=== PATIENT | male | born 1950 | race Caucasian/White ===

== ENCOUNTER 2017-01-16 13:01 | Emergency (ER) | payer OTHER ==
--- NOTE | 2017-01-16 13:50 | ED Physician Documentation ---
PD HPI DYSPNEA - Stated complaint Stated Complaint: DIFF BREATHING/COUGH - Chief complaint Chief Complaint: Resp - History obtained from History obtained from: Patient - History of Present Illness Timing - onset: How many days ago (10) Timing - onset during: Exertion Timing - duration: Days (10) Timing - details: Gradual onset Pain level max: 0 Pain level now: 0 Inciting event(s): URI Improved by: Inhaler/neb (states using albuterol 20x per day) Worsened by: Exertion, Coughing Associated symptoms: Cough, Wheezing. No: Fever Similar symptoms before: Diagnosis (COPD) Recently seen: Clinic (currently on azithromycin) - Additional information Additional information: sick with URI as well. Review of Systems Nose: reports: Rhinorrhea / runny nose, Congestion Throat: denies: Sore throat Cardiac: denies: Chest pain / pressure Respiratory: reports: Cough, Wheezing GI: denies: Abdominal Pain, Nausea, Vomiting, Diarrhea Skin: denies: Rash Musculoskeletal: denies: Neck pain, Back pain Neurologic: denies: Focal weakness, Numbness, Headache PD PAST MEDICAL HISTORY - Past Medical History Past Medical History: Yes Cardiovascular: Coronary artery disease Respiratory: COPD Neuro: None Endocrine/Autoimmune: Type 2 diabetes GI: GERD - Past Surgical History Past Surgical History: Yes Cardiovascular: Fempop bypass - Present Medications Home Medications: Ambulatory Orders Medication Instructions Recorded Confirmed Aspirin [Valorie Chewable Aspirin] 81 mg PO DAILY 01/08/16 01/08/16 Atenolol 25 mg PO DAILY 01/08/16 01/08/16 Atorvastatin Calcium [Lipitor] 40 mg PO DAILY 01/08/16 01/08/16 Cephalexin [Keflex] 500 mg PO QID #28 capsule 01/08/16 Dexamethasone [Decadron] 4 mg PO DAILY #5 tablet 01/08/16 Diltiazem HCl [Cardizem] 180 mg PO DAILY 01/08/16 01/08/16 Gabapentin 300 mg PO TID 01/08/16 01/08/16 Hydrocodone/Acetaminophen [[place] 1 each PO Q6H PRN #20 tablet 01/08/16 5-325 Tablet] Ipratropium [place] [Atrovent Hfa] 2 puffs IH QID #1 hfa.aer.ad 01/08/16 Nortriptyline [Pamelor] 50 mg PO DAILY 01/08/16 01/08/16 Omeprazole 01/08/16 metFORMIN [Glucophage] 1,000 mg PO BID 01/08/16 01/08/16 Albuterol Sulf [Ventolin Hfa 2 puffs INH Q4HR PRN #1 inhaler 01/16/17 Inhaler] Prednisone 40 mg PO DAILY #10 tablet 01/16/17 - Allergies Allergies/Adverse Reactions: Allergies Allergy/AdvReac Type Severity Reaction Status Date / Time lisinopril Allergy Respiratory Verified 01/08/16 01:27 - Social History Does the pt smoke?: No Smoking Status: Never smoker Does the pt drink ETOH?: No - Immunizations Immunizations are current?: Yes PD ED PE NORMAL - Vitals Vital signs reviewed: Yes - General General: Alert and oriented X 3, No acute distress - HEENT HEENT: Moist mucous membranes - Neck Neck: Supple, no meningeal sign - Cardiac Cardiac: RRR - Respiratory Respiratory: No respiratory distress, Other (wheezing B) - Derm Derm: Warm and dry - Neuro Neuro: Alert and oriented X 3 - Psych Psych: Normal mood, Normal affect Results - Vitals Vitals: Vital Signs - 24 hr 01/16/17 01/16/17 01/16/17 13:04 13:40 14:30 Temperature 36.7 C Heart Rate 94 87 86 Respiratory 25 H 22 20 Rate Blood Pressure 181/94 H 172/85 H O2 Saturation 94 94 01/16/17 15:06 Temperature Heart Rate 84 Respiratory 20 Rate Blood Pressure 156/75 H O2 Saturation 94 Oxygen O2 Source Room air - EKG (time done) 1335 Rate: Rate (enter#) (90) Rhythm: NSR [place]: Normal Intervals: Normal [place] QRS: Normal Ischemia: Normal ST segments - Rads (name of study) cxr Radiology: Prelim report reviewed, EMP read contemporaneously, See rad report ( Mild hyperinflation with biapical pleural parenchymal scarring without acute pulmonary consolidation) PD MEDICAL DECISION MAKING - ED course Complexity details: reviewed results, re-evaluated patient, considered differential, d/w patient ED course: Patient is a 66-year-old male who presents to the emergency department with apparent viral URI with COPD flare. Feels better after nebulizer treatment and steroids here. No evidence of pneumonia. No fevers. No hypoxia. No respiratory distress. No acute findings on x-ray. We will continue supportive care, refill his inhaler and prescribed prednisone for home. Patient and family counseled regarding signs and symptoms for which I believe and urgent re- evaluation would be necessary. Patient with good understanding of and agreement to plan and is comfortable going home at this time This document was made in part using voice recognition software. While efforts are made to proofread this document, sound alike and grammatical errors may occur. Departure - Departure Disposition: Home, Self Care Clinical Impression: Acute exacerbation of COPD with asthma Condition: Good Instructions: ED COPD Flare Follow-Up: Provider,Other [Primary Care Provider] - Prescriptions: Albuterol Sulf [Ventolin Hfa Inhaler] 2 puffs INH Q4HR PRN #1 inhaler PRN Reason: Wheezing Prednisone 40 mg PO DAILY #10 tablet Comments: Return if you worsen. Use the spacer with your inhaler. Your blood pressure was elevated today on check in to the emergency department. This does not mean that you have hypertension, it is a common phenomenon to check into the emergency department and have elevated blood pressure. I recommend that you see your primary care physician within the week to have it rechecked when you're feeling better. Discharge Date/Time: 01/16/17 15:16
[2017-01-16] MEDS ORDERED: IPRATROPIUM/ALBUTEROL 3 ML NEB INH STA (14:00)
[2017-01-16] MEDS ORDERED: predniSONE 20 MG TABLET PO STA (14:04)
[2017-01-16] MEDS ORDERED: predniSONE 20 MG TABLET ONE (14:11)
--- NOTE | 2017-01-16 14:50 | XRAY Preliminary Report ---
Exam: XR Chest 2 View PA/LAT IMPRESSION: 1. Mild hyperinflation with biapical pleural parenchymal scarring without acute pulmonary consolidati on. [facility] SITE ID: [id number]
--- NOTE | 2017-01-16 14:52 | XRAY Report ---
EXAM: CHEST RADIOGRAPHY EXAM DATE: 01/16/2017 02:30 PM. CLINICAL HISTORY: Cough, wheezing. COMPARISON: Chest x-ray 01/08/2016. TECHNIQUE: 2 views. FINDINGS: Lungs/Pleura: Mild hyperinflation without pleural effusion or pneumothorax. Mild apical pleural-paren chymal scarring. Mediastinum: Heart and mediastinal contours are unremarkable. Other: Status post median sternotomy. IMPRESSION: 1. Mild hyperinflation with biapical pleural parenchymal scarring without acute pulmonary consolidati on. [facility] Referring Provider Line: [phone] SITE ID: [id number]
[2017-01-16 15:08] VITALS: BP 156/75
== END 2017-01-16 15:16 | disposition home or self-care (01) ==
LOC: ED 13:01
DX: J44.1 Chronic obstructive pulmonary disease with (acute) exacerbation (principal); R03.0 Elevated blood-pressure reading, without diagnosis of hypertension; I25.10 Atherosclerotic heart disease of native coronary artery without angina pectoris; E11.9 Type 2 diabetes mellitus without complications; Z79.84 Long term (current) use of oral hypoglycemic drugs; K21.9 Gastro-esophageal reflux disease without esophagitis; Z79.82 Long term (current) use of aspirin
CPT/HCPCS: 71020; 93005; 93010; 94640; 99283; 99284; J7512; J7620

== ENCOUNTER 2017-01-24 19:57 | Outpatient (CLI) | payer MEDICARE, OTHER | END 2017-01-24 19:58 | disposition critical access hospital (66) | LOC: EMS 19:57 | PROVIDERS: ATTEND Surgery | DX: R07.9 Chest pain, unspecified (principal); R06.02 Shortness of breath | CPT/HCPCS: A0425; A0427 ==

== ENCOUNTER 2017-01-24 20:10 | Inpatient (IN) | payer MEDICARE, OTHER ==
[2017-01-24] MEDS ORDERED: MORPHINE 2 MG/ML SYRINGE IVP STA (20:39)
--- NOTE | 2017-01-24 20:42 | ED Physician Documentation ---
PD HPI CHEST PAIN - Stated complaint Stated Complaint: CP - Chief complaint Chief Complaint: Resp - History obtained from History obtained from: Patient, EMS - History of Present Illness Timing - onset: How many hours ago (1) Timing - onset during: Rest Timing - duration: Hours (1) Timing - details: Abrupt onset Pain level max: 8 Pain level now: 2 Quality: Pressure, Tightness, Aching Location: Substernal, Right chest Radiation: No: Jaw, Neck, Back, Abdominal, Left upper extremity, Right upper extremity Improved by: Oxygen, Nothing Worsened by: No: Exertion, Inspiration, Eating, Movement, Palpation, Position Associated symptoms: Shortness of air, Diaphoresis, Feeling faint / dizzy, Cough (for 1 week) Similar symptoms before: Diagnosis (COPD flare) Recently seen: Emergency Dept (last week for COPD flare.) - Additional information Additional information: Patient states that he drove through [employer] and as he was pulling away from the drive-through developed sudden onset right-sided chest pain. Oxygen saturation of 81% with EMS. Improved with supplemental oxygen. Patient took 3 of his own nitroglycerin which did not help. He was also given 125 of Solu- Medrol as well as a DuoNeb with EMS tonight prior to arrival. Review of Systems Ten Systems: 10 systems reviewed and negative (Subjective) Constitutional: reports: Fever, Chills Nose: reports: Rhinorrhea / runny nose, Congestion Throat: denies: Sore throat Cardiac: reports: Chest pain / pressure (Right sided, low) Respiratory: reports: Dyspnea, Cough, Wheezing. denies: Hemoptysis GI: denies: Abdominal Pain, Nausea, Vomiting, Diarrhea Skin: denies: Rash PD PAST MEDICAL HISTORY - Past Medical History Past Medical History: Yes Cardiovascular: Coronary artery disease Respiratory: COPD Neuro: None Endocrine/Autoimmune: Type 2 diabetes GI: GERD : None HEENT: None Psych: None Musculoskeletal: None Derm: None - Past Surgical History Past Surgical History: Yes Cardiovascular: Fempop bypass - Present Medications Home Medications: Ambulatory Orders Medication Instructions Recorded Confirmed Aspirin [Valorie Chewable Aspirin] 81 mg PO DAILY 01/08/16 01/24/17 Atenolol 25 mg PO DAILY 01/08/16 01/24/17 Atorvastatin Calcium [Lipitor] 40 mg PO DAILY 01/08/16 01/24/17 Diltiazem HCl [Cardizem] 180 mg PO DAILY 01/08/16 01/24/17 Omeprazole 20 mg PO DAILY 01/08/16 01/24/17 metFORMIN [Glucophage] 1,000 mg PO BID 01/08/16 01/24/17 Albuterol Sulf [Ventolin Hfa 2 puffs INH Q4HR PRN #1 inhaler 01/16/17 01/24/17 Inhaler] Fluticasone/Salmeterol [Advair 250 puffs INH DAILY 01/24/17 01/24/17 250-50 Diskus] Glipizide [Glucotrol Xl] 5 mg PO DAILY 01/24/17 01/24/17 Salmeterol Xinafoate [Serevent 50 mcg INH DAILY 01/24/17 01/24/17 Diskus] - Allergies Allergies/Adverse Reactions: Allergies Allergy/AdvReac Type Severity Reaction Status Date / Time lisinopril Allergy Respiratory Verified 01/08/16 01:27 - Social History Does the pt smoke?: No Smoking Status: Former smoker Does the pt drink ETOH?: No Does the pt have substance abuse?: No - Immunizations Immunizations are current?: Yes Results - Vitals Vitals: Vital Signs - 24 hr 01/24/17 01/24/17 01/24/17 20:11 21:19 21:20 Temperature 37.0 C Heart Rate 108 H 103 H 106 H Respiratory 32 H 28 H 20 Rate Blood Pressure 137/71 H 137/71 H O2 Saturation 91 L 97 Oxygen O2 Source Nasal cannula Oxygen Flow Rate 5 - EKG (time done) 2020 Rate: Rate (enter#) (106) Rhythm: Sinus tachycardia [place]: Normal, Posterior hemiblock (LPFB) Intervals: Normal [place] QRS: Normal Ischemia: Normal ST segments - Labs Labs: Laboratory Tests 01/24/17 01/24/17 01/24/17 20:39 21:00 21:00 WBC 26.0 H RBC 4.94 Hgb 14.6 Hct 44.2 MCV 89.6 MCH 29.6 MCHC 33.0 RDW 13.8 Plt Count 312 MPV 8.9 Neut # Not Reportable Lymph # Not Reportable Ada # Not Reportable Eos # Not Reportable Baso # Not Reportable Absolute Nucleated RBC Not Reportable Total Counted 100 Band Neuts % (Manual) 2 Neutrophils # (Manual) 20.8 H Lymphocytes # (Manual) 3.1 Monocytes # (Manual) 1.8 H Basophils # (Manual) 0.3 H Nucleated RBCs Not Reportable Differential Comment MANUAL DIFFERENTIAL Platelet Estimate NORMAL (130-450,000) RBC Morph Micro Appear NORMAL APPEARANCE Sodium 134 L Potassium 3.6 Chloride 96 L Carbon Dioxide 26 Anion Gap 12.0 BUN 24 H Creatinine 1.1 Estimated GFR (MDRD) 67 L Glucose 183 H Lactic Acid Calcium 8.8 Total Bilirubin 1.2 H AST 15 ALT 27 Alkaline Phosphatase 59 Troponin I < 0.04 Total Protein 7.6 Albumin 3.3 Globulin 4.3 H Albumin/Globulin Ratio 0.8 L Lipase 12 L 01/24/17 22:05 WBC RBC Hgb Hct MCV MCH MCHC RDW Plt Count MPV Neut # Lymph # Ada # Eos # Baso # Absolute Nucleated RBC Total Counted Band Neuts % (Manual) Neutrophils # (Manual) Lymphocytes # (Manual) Monocytes # (Manual) Basophils # (Manual) Nucleated RBCs Differential Comment Platelet Estimate RBC Morph Micro Appear Sodium Potassium Chloride Carbon Dioxide Anion Gap BUN Creatinine Estimated GFR (MDRD) Glucose Lactic Acid 1.1 Calcium Total Bilirubin AST ALT Alkaline Phosphatase Troponin I Total Protein Albumin Globulin Albumin/Globulin Ratio Lipase - Rads (name of study) CTPA Radiology: Prelim report reviewed, EMP read contemporaneously, See rad report ( Blfw-sy-rrpbpjab patchy consolidations seen in the bases of the bilateral lower lobes including multiple nodular opacities. These are concerning for multifocal pneumonia. Follow-up is recommended to ensure resolution. No evidence for pulmonary emboli . Otherwise, as above. ) cxr Radiology: Prelim report reviewed, EMP read contemporaneously, See rad report ( No acute cardiopulmonary abnormality. ) PD MEDICAL DECISION MAKING - ED course Complexity details: reviewed old records, reviewed results, re-evaluated patient , considered differential, d/w patient, d/w family, d/w product/industry consultant ED course: Patient is a 66-year-old male who presents to the emergency department with hypoxia, chest pain intermittent fevers for the past week. He appears to have a COPD flare, initial concern for possible PE given his sudden onset of chest pain with hypoxia. CT pulmonary angiogram is negative for this, however does appear to have multifocal pneumonia. Given Rocephin and azithromycin and will admit the patient for further care. Still requiring supplemental oxygen here. Does not use oxygen at home. White blood cell count of 26,000.Discussed the case with Dr. Shore, hospitalist who accepts This document was made in part using voice recognition software. While efforts are made to proofread this document, sound alike and grammatical errors may occur. Departure - Departure Disposition: 66 [facility] DC/Xfer Clinical Impression: Multifocal pneumonia, Hypoxia COPD (chronic obstructive pulmonary disease) Qualifiers: COPD type: unspecified COPD Qualified Code(s): J44.9 - Chronic obstructive pulmonary disease, unspecified Condition: Stable Discharge Date/Time: 01/24/17 22:58
[2017-01-24] MEDS ORDERED: MORPHINE 2 MG/ML SYRINGE ONE (20:43)
[2017-01-24 20:47] LABS: BASOPHILS % (AUTO) 0.8 %; EOSINOPHILS % (AUTO) 1.3 %; HCT - HEMATOCRIT 44.2 % (42.0-52.0); HGB - HEMOGLOBIN 14.6 g/dL (14.0-18.0); LYMPHOCYTES % (AUTO) 13.3 %; MEAN CORPUSCULAR HEMOGLOBIN 29.6 pg (27.0-31.0); MEAN CORPUSCULAR VOLUME 89.6 fL (80.0-94.0); MEAN PLATELET VOLUME 8.9 fL (7.4-11.4); NEUTROPHILS % (AUTO) 77.6 %; RED BLOOD COUNT 4.94 10^6/uL (4.70-6.10); RED CELL DISTRIBUTION WIDTH 13.8 % (12.0-15.0)
[2017-01-24] MEDS ORDERED: IPRATROPIUM/ALBUTEROL 3 ML NEB INH STA (21:06)
--- NOTE | 2017-01-24 21:06 | XRAY Preliminary Report ---
Exam: XR Chest 1 View IMPRESSION: No acute cardiopulmonary abnormality. [facility] SITE ID: [id number]
--- NOTE | 2017-01-24 21:08 | XRAY Report ---
EXAM: CHEST RADIOGRAPHY EXAM DATE: 01/24/2017 08:46 PM. CLINICAL HISTORY: R side chest pain. COMPARISON: 01/16/2017. TECHNIQUE: 1 view. FINDINGS: Lungs/Pleura: No focal opacities evident. No pleural effusion. No pneumothorax. Mediastinum: The heart is normal in size. Previous sternotomy and mediastinal surgery noted. Trachea is midline. Other: None. IMPRESSION: No acute cardiopulmonary abnormality. [facility] Referring Provider Line: [phone] SITE ID: [id number]
[2017-01-24 21:18] LABS: BAND NEUTROPHILS % (MANUAL) 2 %; BASOPHILS % (MANUAL) 1 %; LYMPHOCYTES % (MANUAL) 12 %; NEUTROPHILS % (MANUAL) 78 %; NP AUTO DIFFERENTIAL? YES; NP MAN DIFFERENTIAL? NO; PLATELET ESTIMATE, MANUAL NORMAL (130-450,000) (NORMAL); TOTAL CELLS COUNTED 100
[2017-01-24] MEDS ORDERED: IPRATROPIUM/ALBUTEROL 3 ML NEB INH ONE (21:18)
[2017-01-24 21:21] LABS: ALBUMIN/GLOBULIN RATIO 0.8 (1.0-2.2); BILIRUBIN,TOTAL 1.2 mg/dL (0.2-1.0); CALCIUM 8.8 mg/dL (8.5-10.3); CREATININE 1.1 mg/dL (0.6-1.2); POTASSIUM 3.6 mmol/L (3.5-5.0); TOTAL PROTEIN 7.6 g/dL (6.7-8.2)
[2017-01-24] MEDS ORDERED: IOPAMIDOL-300 100 ML VIAL IVP ONE (21:24)
--- NOTE | 2017-01-24 21:55 | CT Preliminary Report ---
Exam: CT Chest Angio (PE) IMPRESSION: 1. Ruiz-ti-grtyvufs patchy consolidations seen in the bases of the bilateral lower lobes including mu ltiple nodular opacities. These are concerning for multifocal pneumonia. Follow-up is recommended to ensure resolution. 2. No evidence for pulmonary emboli 3. Otherwise, as above. [facility] SITE ID: [id number]
[2017-01-24] MEDS ORDERED: AZITHROMYCIN INJ 500 MG in SODIUM CHLORIDE 0.9% 250 ML IV STA ×2 (21:56→22:17)
[2017-01-24] MEDS ORDERED: cefTRIAXone 1 GM in SODIUM CHLORIDE 0.9% MINIBAG 100 ML IV STA ×2 (21:56→22:17)
[2017-01-24] MEDS ORDERED: SODIUM CHLORIDE 0.9% 1,000 ML IV ONE ×4 (21:56→23:57)
--- NOTE | 2017-01-24 21:57 | CT Report ---
EXAM: CT ANGIOGRAM CHEST EXAM DATE: 01/24/2017 09:34 PM. CLINICAL HISTORY: Right sided chest pain, dyspnea. COMPARISON: Chest 01/24/2017. TECHNIQUE: Routine helical imaging was performed through the chest in the pulmonary arterial phase. I V Contrast: 100 mL Isovue 300. Reconstructions: Coronal 3-D MIP reconstructions.Sagittal and coronal. In accordance with CT protocol optimization, one or more of the following dose reduction techniques w ere utilized for this exam: automated exposure control, adjustment of mA and/or KV based on patient s ize, or use of iterative reconstructive technique. FINDINGS: Pulmonary Arteries: Diagnostic quality: Adequate through the segmental arteries. No evidence for acute or chronic pulmona ry emboli. Lungs/Pleura: Mild biapical scarring. Minimal biapical paraseptal emphysema. Yzyp-wa-uojzlbfp patchy consolidations seen in the bases of the bilateral lower lobes including multi ple nodular opacities Mediastinum: Subcarinal lymph node is prominent measuring 6 mm prominent mediastinal lymph nodes. No mediastinal or hilar lymphadenopathy. Prominent left hilar lymph node measuring 8 mm . Mediastinal po stsurgical change. Coronary artery Calcification. Normal Heart Size. Thoracic Aorta: No thoracic aortic aneurysm or dissection Upper Abdomen: No acute findings Other: No acute bone findings. IMPRESSION: 1. Obza-an-nyggtihn patchy consolidations seen in the bases of the bilateral lower lobes including mu ltiple nodular opacities. These are concerning for multifocal pneumonia. Follow-up is recommended to ensure resolution. 2. No evidence for pulmonary emboli 3. Otherwise, as above. [facility] Referring Provider Line: [phone] SITE ID: [id number]
[2017-01-24] MEDS ORDERED: cefTRIAXone 1 GM VIAL ONE (21:59)
[2017-01-24] MEDS ORDERED: SODIUM CHLORIDE FLUSH 0.9% 10 ML SYRINGE IVP PRN (22:17)
[2017-01-24] MEDS ORDERED: ONDANSETRON 4 MG/2 ML VIAL IVP PRN ×2 (22:17→23:03)
[2017-01-24] MEDS ORDERED: ACETAMINOPHEN 325 MG TABLET PO PRN ×2 (22:17→23:03)
[2017-01-24] MEDS ORDERED: ATORVASTATIN 40 MG TABLET PO STA (22:17)
--- NOTE | 2017-01-24 22:53 | HISTORY & PHYSICAL EXAMINATION ---
Chief Complaint - Chief Complaint Chief Complaint: right-sided chest pain History of Present Illness - Admitted From Admitted From:: emergency room - History Obtained From Records Reviewed: EMR records History obtained from: patient - History of Present Illness HPI Comment/Other: this 66-year-old man with a past history of COPD, diabetes, hypertension, GERD was driving through a drive through this evening, when he noticed the fairly sudden onset of right-sided chest discomfort. He presented to the emergency room where he was found to have room air hypoxia, and an elevated white blood cell count, and evidence on CAT scan of bibasalir, multifocal pneumonia. history is obtained from the patient and his . They note he has been sick for a couple of weeks. His says he caught a virus from her, and has never really recovered..he was seen in our emergency room on January 07, and again on January 16. They note that he seems to be having progressive for the last several months. He is normal followed at the [facility] [place], but says he has not seen a heart doctor or a lung doctor 4 years. he believes he has had a low-grade fever recently, and has been having headaches and feeling dizzy for about 2 weeks. He has a cough productive of whiti Today had the sudden onset of a sharp at the lower end of his sternum,, which occasionally radiates across his chest and into his left arm. This is worse with coughing and deep breathing. He denies new eye or ear symptoms. His mouth is very dry today. He denies lymphadenopathy, neck stiffness, other chest tightness or heaviness. He has like he's been wheezing at home. He does not have a home nebulizer or home oxygen. He denies abdominal pain, nausea or vomiting, diarrhea or constipation. He does have nocturia about 2 times per night,, chronically. Also, of note, the [facility] recently checked his stool and he tested positive for blood. They declined to do a colonoscopy, until he did a stress test. He says he cannot tolerate a walk because of his breathing, but refuses to have a chemical stress test, after the last one made him feel horrible. past medical history: COPD, emphysema Past history of approximately [id number] smoking Coronary disease, status post SD at age 48, status post two-vessel bypass Type II diabetes, generally controlled History of GERD Hyperlipidemia Past surgical history: Femoropopliteal bypass, two-vessel coronary bypass. current medications: Serevent Advair 250-50 Glipizide 5 mg daily Diltiazem 180 mg daily Lipitor 40 mg daily Aspirin 81 mg daily Albuterol inhaler every 4 hours when necessary Omeprazole 20 mg daily Metformin 1000 mg twice a day Atenolol 25 mg daily Allergies: Lisinopril. caused a cough. He was tried on losartan, but reportedly his blood pressure was running too low. Family history: mother in her 70s with coronary disease. Father at age 57 with lung cancer. Hisbrother of an SD recently, at age 63.. His sister of lung cancer. Social history: the patient is , and lives with his . He is a retired traffic controller. He lost his insurance when his retired from work, and recently started being followed at the [facility] [place].. he previously smoked 2 packs a day for approximately 50 years, and quit about 6 years ago. He drinks one mixed drink about once a week. He does not use drugs. History - Past Medical History Cardiovascular: reports: Coronary artery disease Respiratory: reports: COPD Neuro: reports: None Endocrine/Autoimmune: reports: Type 2 diabetes GI: reports: GERD : reports: None HEENT: reports: None Psych: reports: None Musculoskeletal: reports: None Derm: reports: None MRSA Hx?: No - Past Surgical History Cardiovascular: reports: Fempop bypass Meds/Allgy - Home Medications Home Medications: Ambulatory Orders Medication Instructions Recorded Confirmed Aspirin [Valorie Chewable Aspirin] 81 mg PO DAILY 01/08/16 01/24/17 Atenolol 25 mg PO DAILY 01/08/16 01/24/17 Atorvastatin Calcium [Lipitor] 40 mg PO DAILY 01/08/16 01/24/17 Diltiazem HCl [Cardizem] 180 mg PO DAILY 01/08/16 01/24/17 Omeprazole 20 mg PO DAILY 01/08/16 01/24/17 metFORMIN [Glucophage] 1,000 mg PO BID 01/08/16 01/24/17 Albuterol Sulf [Ventolin Hfa 2 puffs INH Q4HR PRN #1 inhaler 01/16/17 01/24/17 Inhaler] Fluticasone/Salmeterol [Advair 250 puffs INH DAILY 01/24/17 01/24/17 250-50 Diskus] Glipizide [Glucotrol Xl] 5 mg PO DAILY 01/24/17 01/24/17 Salmeterol Xinafoate [Serevent 50 mcg INH DAILY 01/24/17 01/24/17 Diskus] - Allergies Allergies/Adverse Reactions: Allergies Allergy/AdvReac Type Severity Reaction Status Date / Time lisinopril Allergy Respiratory Verified 01/08/16 01:27 Exam - Vital Signs Reviewed Vital Signs: Yes Vital Signs: Vital Signs x48h Temp Pulse Resp BP Pulse Ox 01/24/17 22:44 103 H 22 137/89 H 97 01/24/17 21:20 106 H 20 01/24/17 21:19 103 H 28 H 137/71 H 97 01/24/17 20:11 37.0 C 108 H 32 H 137/71 H 91 L on exam, his O2 saturations were in the 80% range when 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 Head: Normocephalic,, atraumatic. Eyes: PERRLA LA, EOMI, anicteric, normal conjunctiva. Ears: TMs and canals are clear. Pharynx: He has full upper and lower plates. Oral mucosa is markedly dry. Posterior pharynx looks a little red, but is without exudate. Neck: Is supple, without obvious lymphadenopathy, JVD, thyromegaly,, or bruits. Cardiac exam: Shows regular rate and rhythm, with normal S1 and S2, without murmurs, rubs, gallops. Lungs: Have decreased breath sounds throughout. He does have rales and scattered rhonchi at the bases, left greater than right. No definite wheezes are heard at this time. There is no accessory muscle use. Abdomen: Is protuberant, but otherwise soft and nontender.. There are no obvious masses. Bowel sounds are active. Extremities: Show no cyanosis, clubbing, edema. Neurologic exam: Is grossly nonfocal. mood and affect appear normal. Skin exam: Shows no rashes or other worrisome lesions. Conclusion/Plan - Lab Results Fish Bones: 01/24/17 20:39 01/24/17 21:00 Other Lab Results: CT angiogram, chest:no pulmonary embolen. Mild biapical scarring, and biapical emphysema. Moderate patchy consolidations bilateral bases including multiple nodular opacities, consistent with multifocal pneumonia... chest x-ray: Shows no acute cardiopulmonar. EKG: Shows sinus tachycardia at a rate, with normal axis, left posterior fascicular block, and no obvious acute ischemic changes. Issues/Core Measures - Anticipated LOS Anticipated Stay Length: 2 or more midnights - Issues Hospital Issues and Management Plan: #1. Pulmonary/iinfectious disease. -This patient presents with signs and the symptoms consistent with community acquired pneumonia superimposed on COPD. He has acute respiratory failure, as evidenced by a room air hypoxia, significant leukocytosis. he did not clear easily in the emergency room, so Will require more aggressive treatment as an inpatient. bbecause his symptoms have been ongoing, he may require more aggressive antibiotics. If he does not show significant improvement overnight, I would change his Rocephin to imipenem or cefepime, and consider adding vancomycin. -admit for IV antibiotics with Rocephin and Zithromax, IV steroids, nebulized broncho-dilators, oxygen,, and close monitoring. -Blood and sputum cultures have been ordered. -IV fluids, guaifenesin, incentive spirometry, as needed. he may benefit from having an oximeter and nebulizers at home, for home management. He should also be tested to see if he qualifies for home oxygen. #2. cardiac. -history of coronary disease. continue diltiazem, Lipitor, aspirin, atenolol. -the patient is having progressive dyspnea with exertion over the last several months. He will need to have further cardiac and pulmonary evaluation,, [facility], to clarify the etiology of these progressive symptoms.. He has been declining a chemical stress test, so may need to seek an angiogram,, as he is apparently unable to walk on the treadmill. -Monitor on telemetry overnight. #3. Type II diabetes. Monitor Accu-Cheks. Metformin held regarding IV dye. -Sliding scale insulin. Continue glipizide. -Check hemoglobin A1c. -Continue aspirin, statin. Patient is reportedly allergic to ELIZABETH inhibitors. he reports he previously he did not tolerate low certain, due to low blood pressure. This does not seem to be an issue at this time. #4. CODE STATUS: he does not have a formal living will, but he and his feel he should be a full code. #5. DVT prophylaxis: Subcutaneous Lovenox. #6. GI. -Recent history of heme positive stool.the patient has been told he cannot have colonoscopy until the real estate developer clears him. -Reported history of GERD. Continue PPI. this visit took approximately 70 minutes,, to review patient's records and test results, interviewed him and his , examine him, and write orders. - DVT/VTE - Prophylaxis VTE/DVT Device ordered at admit?: No VTE/DVT Prophylaxis med ordered at admit?: Yes
[2017-01-24] MEDS ORDERED: methylPREDNISolone SUCCINATE 80 MG in SODIUM CHLORIDE 0.9% 250 ML IV SCH (23:00)
[2017-01-24 23:28] LABS: HEMOGLOBIN A1C 0.84 g/dL
[2017-01-25] MEDS: SODIUM CHLORIDE FLUSH 0.9% 10 ML SYRINGE IVP SCH ×3 (00:24→22:13)
[2017-01-25] MEDS: ATORVASTATIN 40 MG TABLET PO SCH ×2 (00:24→22:07)
[2017-01-25] MEDS ORDERED: ALBUTEROL NEB 2.5 MG/3 ML INH PRN (02:00)
[2017-01-25] MEDS ORDERED: SODIUM CHLORIDE FLUSH 0.9% 10 ML SYRINGE IVP SCH (06:00)
[2017-01-25] MEDS: PANTOPRAZOLE 40 MG TABLET PO SCH ×2 (06:12→06:21)
[2017-01-25] MEDS ORDERED: methylPREDNISolone SUCCINATE 40 MG/ML VIAL ONE (06:13)
[2017-01-25] MEDS ORDERED: methylPREDNISolone SUCCINATE 80 MG in SODIUM CHLORIDE 0.9% 250 ML IV SCH (07:00)
[2017-01-25] MEDS ORDERED: PANTOPRAZOLE 40 MG TABLET PO SCH (07:00)
[2017-01-25] MEDS: IPRATROPIUM/ALBUTEROL 3 ML NEB INH SCH ×4 (07:25→18:45)
[2017-01-25] MEDS ORDERED: methylPREDNISolone SUCCINATE 40 MG/ML VIAL IVP SCH (08:00)
[2017-01-25] MEDS ORDERED: ASPIRIN 325 MG TABLET PO SCH ×2 (08:00)
[2017-01-25] MEDS ORDERED: diltiaZEM CD 120 MG CAPSULE PO SCH ×2 (09:00)
[2017-01-25] MEDS ORDERED: cefTRIAXone 1 GM in SODIUM CHLORIDE 0.9% MINIBAG 100 ML IV SCH ×2 (09:00→22:00)
[2017-01-25] MEDS ORDERED: IPRATROPIUM/ALBUTEROL 3 ML NEB INH SCH (09:00)
[2017-01-25] MEDS ORDERED: POLYETHYLENE GLYCOL 3350 17 GM PACKET PO SCH (09:00)
[2017-01-25] MEDS ORDERED: ENOXAPARIN 40 MG/0.4 ML SYRINGE SUBQ SCH (09:00)
[2017-01-25] MEDS ORDERED: ATENOLOL 25 MG TABLET PO SCH (09:00)
[2017-01-25] MEDS: INSULIN ASPART 300 UNIT/3 ML PEN SUBQ SCH ×4 (09:46→22:10)
[2017-01-25] MEDS ORDERED: diltiaZEM CD 180 MG CAPSULE PO SCH (10:30)
[2017-01-25] MEDS: ASPIRIN CHEW 81 MG TABLET PO SCH (10:50)
[2017-01-25] MEDS: ATENOLOL 25 MG TABLET PO SCH (10:50)
[2017-01-25] MEDS: POLYETHYLENE GLYCOL 3350 17 GM PACKET PO SCH (10:51)
[2017-01-25] MEDS: ENOXAPARIN 40 MG/0.4 ML SYRINGE SUBQ SCH (10:51)
--- NOTE | 2017-01-25 10:57 | PROVIDER PROGRESS NOTE ---
Assessment/Plan - Problem List (1) CAP (community acquired pneumonia) Assessment/Plan: Currently treated with Rocephin and Azithromycin Continues to have decreased BS with rhonchi Showing evidence of sepsis with elevated WBC, hypoxemia and tachycardia. Normal BP and remains afebrile WBC 26.0 on admission last night Plan Continue current medications Encourage flutter valve use RT evaluation with DuoNebs ordered Start guaifenesin BID (2) COPD (chronic obstructive pulmonary disease) Qualifiers: COPD type: unspecified COPD Qualified Code(s): J44.9 - Chronic obstructive pulmonary disease, unspecified Assessment/Plan: Contributing to his poor pulmonary status and hypoxemia. Plan Continue home medications RT treatments IV abx for underlying pulmonary infection (3) Diabetes mellitus Assessment/Plan: Elevated BG levels today Added insulin per sliding scale Restart glipizide today Will plan to restart Metformin prior to discharge (4) CAD (coronary artery disease) Assessment/Plan: Recent changes in status wiht increasing BRUCE PT has refused a chemical stress test with myocardial perfusion images due to prior ADR. Plan [facility] No change to home medications - Current Meds Current Meds: Current Medications Generic Name Dose Route Start Last Admin Trade Name Freq PRN Reason Stop Dose Admin Albuterol/Ipratropium 3 ml 01/25/17 07:00 01/25/17 10:30 Duoneb INH 3 ml RTQID MARY ELLEN Administration Aspirin 81 mg 01/25/17 09:00 01/25/17 10:50 St Sean Aspirin PO 81 mg DAILY MARY ELLEN Administration Atenolol 25 mg 01/25/17 09:00 01/25/17 10:50 Tenormin PO 25 mg DAILY MARY ELLEN Administration Atorvastatin Calcium 40 mg 01/24/17 23:00 01/25/17 00:24 Lipitor PO 40 mg QPM MARY ELLEN Administration Enoxaparin Sodium 40 mg 01/25/17 09:00 01/25/17 10:51 Lovenox SUBQ 40 mg DAILY MARY ELLEN Administration Insulin Aspart 1 - 9 unit 01/25/17 08:30 01/25/17 09:46 Novolog SUBQ 7 unit 0800,1200,1700,2100 MARY ELLEN Administration Protocol Pantoprazole Sodium 40 mg 01/25/17 07:00 01/25/17 06:21 Protonix PO 40 mg QDAC MARY ELLEN Administration Polyethylene Glycol 17 gm 01/25/17 09:00 01/25/17 10:51 Miralax PO Not Given DAILY [facility] Sodium Chloride 10 ml 01/25/17 06:00 01/25/17 00:24 Normal Saline Flush 0.9% IVP 10 ml Q8HR MARY ELLEN Administration - Lab Result Lab results reviewed: Yes Fish Bone Diagrams: 01/24/17 20:39 01/24/17 21:00 - EKG Results EKG Interpreted Independently: Yes - Diagnostic Imaging Results Diagnostic Imaging Results: positive: Final report reviewed - Additional Planning Condition/Complexity: Stable My Orders: My Active Orders 01/25/17 08:05 Blood Glucose Checks - Eating [RC] 0800,1200,1700,2100 Initiate Hypoglycemia Protocol [] .protocol 01/25/17 08:30 Insulin Aspart [NovoLOG] 1 - 9 unit SUBQ 0800,1200,1700,2100 01/25/17 10:53 Acapella [Acapella (Flutter Valve Device] [] TID Plan Discussed with:: Patient Time Spent: 15-30 minutes Subjective - Subjective Patient Reports: Other (No changes since admission. Does not feel he is better or worse. No anginal chest pain reported) Objective Vital Signs: Vital Signs - 24 hr 01/24/17 01/24/17 01/25/17 22:44 23:20 00:01 Temperature 36.7 C Heart Rate 103 H 72 Heart Rate [ 101 H Brachial] Respiratory 22 20 20 Rate Blood Pressure 137/89 H 141/69 H Blood Pressure 173/97 H [Right Brachial artery] O2 Saturation 97 93 100 01/25/17 01/25/17 01/25/17 06:00 07:25 10:30 Temperature 36.7 C 36.6 C Heart Rate 106 H 112 H Heart Rate [ 99 104 H Brachial] Respiratory 16 20 18 Rate Blood Pressure Blood Pressure 157/96 H 137/91 H [Right Brachial artery] O2 Saturation 95 95 Oxygen O2 Source Nasal cannula Oxygen Flow Rate 4 I&O (Last 24 Hrs): Intake and Output Totals x24h 01/23/17 01/24/17 01/25/17 23:59 23:59 23:59 Intake Total 1110 Output Total 1650 Balance -540 General: Alert, Oriented x3 HEENT: PERRLA, EOMI Neck: No JVD Lymphatic: no adenopathy Neuro: Alert, CN 2-12 Grossly Intact Cardiovascular: Regular rate, No murmurs Respiratory: Chest non-tender, No respiratory distress Abdomen: Normal bowel sounds, Soft, No tenderness - Results Results: Laboratory Results WBC 26.0 x10^3/uL (4.8-10.8) H 01/24/17 20:39 RBC 4.94 10^6/uL (4.70-6.10) 01/24/17 20:39 Hgb 14.6 g/dL (14.0-18.0) 01/24/17 20:39 Hct 44.2 % (42.0-52.0) 01/24/17 20:39 MCV 89.6 fL (80.0-94.0) 01/24/17 20:39 MCH 29.6 pg (27.0-31.0) 01/24/17 20:39 MCHC 33.0 g/dL (32.0-36.0) 01/24/17 20:39 RDW 13.8 % (12.0-15.0) 01/24/17 20:39 Plt Count 312 10^3/uL (130-450) 01/24/17 20:39 MPV 8.9 fL (7.4-11.4) 01/24/17 20:39 Neut # Not Reportable 01/24/17 20:39 Lymph # Not Reportable 01/24/17 20:39 [place] # Not Reportable 01/24/17 20:39 Eos # Not Reportable 01/24/17 20:39 Baso # Not Reportable 01/24/17 20:39 Absolute Nucleated RBC Not Reportable 01/24/17 20:39 Total Counted 100 01/24/17 20:39 Band Neuts % (Manual) 2 % (0-10) 01/24/17 20:39 Neutrophils # (Manual) 20.8 10^3/uL (1.5-6.6) H 01/24/17 20:39 Lymphocytes # (Manual) 3.1 10^3/uL (1.5-3.5) 01/24/17 20:39 Monocytes # (Manual) 1.8 10^3/uL (0.0-1.0) H 01/24/17 20:39 Basophils # (Manual) 0.3 10^3/uL (0-0.1) H 01/24/17 20:39 Nucleated RBCs Not Reportable 01/24/17 20:39 Differential Comment MANUAL DIFFERENTIAL 01/24/17 20:39 Platelet Estimate NORMAL (130-450,000) (NORMAL) 01/24/17 20:39 RBC Morph Micro Appear NORMAL APPEARANCE (NORMAL) 01/24/17 20:39 Sodium 134 mmol/L (135-145) L 01/24/17 21:00 Potassium 3.6 mmol/L (3.5-5.0) 01/24/17 21:00 Chloride 96 mmol/L (101-111) L 01/24/17 21:00 Carbon Dioxide 26 mmol/L (21-32) 01/24/17 21:00 Anion Gap 12.0 (6-13) 01/24/17 21:00 BUN 24 mg/dL (6-20) H 01/24/17 21:00 Creatinine 1.1 mg/dL (0.6-1.2) 01/24/17 21:00 Estimated GFR (MDRD) 67 (>89) L 01/24/17 21:00 Glucose 183 mg/dL (70-100) H 01/24/17 21:00 Glycated Hemoglobin 7.1 % (4.6-6.2) H 01/24/17 20:39 Estim Average Glucose 157 (70-100) H 01/24/17 20:39 Lactic Acid 1.1 mmol/L (0.5-2.2) 01/24/17 22:05 Calcium 8.8 mg/dL (8.5-10.3) 01/24/17 21:00 Total Bilirubin 1.2 mg/dL (0.2-1.0) H 01/24/17 21:00 AST 15 IU/L (10-42) 01/24/17 21:00 ALT 27 IU/L (10-60) 01/24/17 21:00 Alkaline Phosphatase 59 IU/L (42-121) 01/24/17 21:00 Troponin I < 0.04 ng/mL (<0.49) 01/24/17 21:00 Total Protein 7.6 g/dL (6.7-8.2) 01/24/17 21:00 Albumin 3.3 g/dL (3.2-5.5) 01/24/17 21:00 Globulin 4.3 g/dL (2.1-4.2) H 01/24/17 21:00 Albumin/Globulin Ratio 0.8 (1.0-2.2) L 01/24/17 21:00 Lipase 12 U/L (22-51) L 01/24/17 21:00
[2017-01-25] MEDS: guaiFENesin 600 MG TABLET PO SCH ×2 (11:53→22:07)
[2017-01-25] MEDS: GABAPENTIN 300 MG CAPSULE PO SCH ×2 (14:06→22:08)
[2017-01-25] MEDS: methylPREDNISolone SUCCINATE 40 MG/ML VIAL IVP SCH ×2 (16:38→23:51)
[2017-01-25] MEDS: glipiZIDE 5 MG TABLET PO SCH (16:39)
[2017-01-25] MEDS ORDERED: NORTRIPTYLINE 25 MG CAPSULE PO SCH (21:00)
[2017-01-25] MEDS ORDERED: AZITHROMYCIN INJ 500 MG in SODIUM CHLORIDE 0.9% 250 ML IV SCH ×2 (22:00→22:30)
[2017-01-26] MEDS: GABAPENTIN 300 MG CAPSULE PO SCH ×2 (05:57→14:07)
[2017-01-26] MEDS: SODIUM CHLORIDE FLUSH 0.9% 10 ML SYRINGE IVP SCH ×2 (06:14→14:08)
[2017-01-26] MEDS: PANTOPRAZOLE 40 MG TABLET PO SCH (06:14)
[2017-01-26] MEDS: glipiZIDE 5 MG TABLET PO SCH ×2 (07:05→15:34)
[2017-01-26] MEDS: INSULIN ASPART 300 UNIT/3 ML PEN SUBQ SCH ×4 (08:14→17:06)
[2017-01-26] MEDS: methylPREDNISolone SUCCINATE 40 MG/ML VIAL IVP SCH (08:14)
[2017-01-26] MEDS: ASPIRIN CHEW 81 MG TABLET PO SCH (08:14)
[2017-01-26] MEDS: ATENOLOL 25 MG TABLET PO SCH (08:15)
[2017-01-26] MEDS: ENOXAPARIN 40 MG/0.4 ML SYRINGE SUBQ SCH (08:15)
[2017-01-26] MEDS: guaiFENesin 600 MG TABLET PO SCH (08:15)
[2017-01-26] MEDS: SODIUM CHLORIDE FLUSH 0.9% 10 ML SYRINGE IVP PRN ×3 (08:15→17:11)
[2017-01-26] MEDS: POLYETHYLENE GLYCOL 3350 17 GM PACKET PO SCH (08:16)
[2017-01-26] MEDS: IPRATROPIUM/ALBUTEROL 3 ML NEB INH SCH ×2 (09:15→16:50)
--- NOTE | 2017-01-26 09:30 | PROVIDER PROGRESS NOTE ---
Subjective - Prog Note Date Prog Note Date: 01/26/17 (followup for SOB and Pnemonia) Prog Note Time: 09:20 - Subjective Pt reports feeling: Improved (better clinically [place] symptoms [place] [address]. He also has an elevated blood glucose as well.) Subjective: Patient seen at bedside. He is feeling better today and has been using his oxygen 2 liters and up walking. He denies fever, chills, sweats, chest pain, nausea or vomiting. He has a nonproductive cough. RT is working with him with treatments. will need a walking oxygen level prior to going home. He states he will not need assistance when discharged home. 1500: patient was concerned about bill when he was notified that the MD would not cover this hospitalization. Patient wanted to leave AMA. He was told at admission that the MD did not have a bed available and so was admitted here. Patient would like to stay and continue treatment but is fearful will have to pay the bill 100%. working with case management regarding coverage at this time. patients spouse is working with admissions to see if this admission will be covered. Patient is agreeable to have IV antibiotics while waiting and other breathing treatments Current Medications - Current Medications Current Medications: Active Medications Generic Name Dose Route Start Last Admin Trade Name Freq PRN Reason Stop Dose Admin Acetaminophen 650 mg 01/24/17 23:03 Tylenol PO Q4HR PRN Pain 1 to 4 Albuterol 2.5 mg 01/25/17 02:00 INH RTQ4H PRN Wheezing Albuterol/Ipratropium 3 ml 01/25/17 07:00 01/26/17 09:15 Duoneb INH 3 ml RTQID MARY ELLEN Administration Aspirin 81 mg 01/25/17 09:00 01/26/17 08:14 St Sean Aspirin PO 81 mg DAILY MARY ELLEN Administration Atenolol 25 mg 01/25/17 09:00 01/26/17 08:15 Tenormin PO 25 mg DAILY MARY ELLEN Administration Atorvastatin Calcium 40 mg 01/24/17 23:00 01/25/17 22:07 Lipitor PO 40 mg QPM MARY ELLEN Administration Diltiazem HCl 180 mg 01/25/17 10:30 01/26/17 08:15 Cardizem Cd PO 180 mg DAILY MARY ELLEN Administration Enoxaparin Sodium 40 mg 01/25/17 09:00 01/26/17 08:15 Lovenox SUBQ 40 mg DAILY MARY ELLEN Administration Gabapentin 300 mg 01/25/17 14:00 01/26/17 14:07 Neurontin PO 300 mg TID MARY ELLEN Administration Glipizide 5 mg 01/25/17 16:30 01/26/17 15:34 Glucotrol PO 5 mg 0730,1630 MARY ELLEN Administration Guaifenesin 600 mg 01/25/17 11:00 01/26/17 08:15 Mucinex PO 600 mg BID MARY ELLEN Administration Azithromycin 500 mg/ Sodium 250 mls @ 250 mls/hr 01/25/17 22:00 01/25/17 22:09 Chloride IV 250 mls/hr Q24H MARY ELLEN Administration Levofloxacin 150 mls @ 100 mls/hr 01/26/17 16:00 01/26/17 16:09 Levaquin 750 Mg/150 Ml IV 100 mls/hr Q24H MARY ELLEN Administration Magnesium Sulfate 50 mls @ 50 mls/hr 01/26/17 16:15 01/26/17 15:41 Magnesium Sulfate IV 01/26/17 17:14 50 mls/hr ONCE ONE Administration Insulin Aspart 2 - 10 unit 01/26/17 12:00 01/26/17 12:00 Novolog SUBQ 8 unit 0800,1200,1700,2100 MARY ELLEN Administration Protocol Nortriptyline HCl 50 mg 01/25/17 21:00 01/25/17 22:07 Pamelor PO 50 mg QPM MARY ELLEN Administration Ondansetron HCl 4 mg 01/24/17 23:03 Zofran Inj IVP Q6HR PRN Nausea / Vomiting Pantoprazole Sodium 40 mg 01/25/17 07:00 01/26/17 06:14 Protonix PO 40 mg QDAC MARY ELLEN Administration Polyethylene Glycol 17 gm 01/25/17 09:00 01/26/17 08:16 Miralax PO Not Given DAILY MARY ELLEN Sodium Chloride 10 ml 01/24/17 23:03 01/26/17 15:41 Normal Saline Flush 0.9% IVP 10 ml PRN PRN Administration NEEDED PER PROVIDER ORDERS Sodium Chloride 10 ml 01/25/17 06:00 01/26/17 14:08 Normal Saline Flush 0.9% IVP 10 ml Q8HR MARY ELLEN Administration Aspirin [Valorie Chewable Aspirin] 81 mg PO DAILY 01/08/16 Atenolol 25 mg PO DAILY 01/08/16 Omeprazole 20 mg PO BIDAC 01/08/16 metFORMIN [Glucophage] 1,000 mg PO BIDWM 01/08/16 Fluticasone/Salmeterol [Advair 500-50 Diskus] 1 puffs INH BID 01/25/17 Gabapentin 300 mg PO 0900,1400,2100 01/25/17 Glipizide 5 mg PO BIDAC 01/25/17 Multivitamin [Theragran] 1 tab PO DAILY 01/25/17 Nortriptyline [Pamelor] 50 mg PO QPM 01/25/17 Pravastatin [Pravachol] 20 mg PO QPM 01/25/17 Tiotropium [place] [Spiriva] 1 cap INH DAILY 01/25/17 [id number] CD [Cardizem Cd] 180 mg PO DAILY 01/25/17 Objective - Vital Signs/Intake & Output Vital Signs: Vital Signs x48h Temp Pulse Resp BP Pulse Ox 01/26/17 08:04 36.6 C 95 19 183/97 H 94 01/26/17 04:56 36.5 C 90 18 155/86 H 93 Intake & Output: Intake & Output 01/23/17 01/24/17 01/25/17 01/26/17 23:59 23:59 23:59 23:59 Intake Total 2610 762 Output Total 2375 1650 Balance 235 -888 - Objective General Appearance: positive: No acute distress Eyes Bilateral: positive: PERRL ENT: positive: Pharynx nml, No signs of dehydration Neck: positive: No JVD, Trachea midline Respiratory: positive: No respiratory distress, Wheezes, Other (bronchial with cough and diminished in bases) Cardiovascular: positive: Regular rate & rhythm, No murmur, No gallop. negative : JVD present Peripheral Pulses: 2+ Radial (R), 2+ Radial (L) Abdomen: positive: Non-tender, Nml bowel sounds, No distention Back: positive: Nml inspection Skin: positive: No rash, Warm, Dry Extremities: positive: Non-tender, Full ROM Neurologic/Psychiatric: positive: Oriented x3, CN's nml (2-12), Sensation nml, Mood/affect nml - Lab Results Fish Bones: 01/26/17 10:00 01/26/17 10:00 - Diagnostic Imaging Diagnostic Imaging Results: positive: Critical result (patients WBC became elevated today. pending sputum results and blood cultures), Other - Other Results/Comments Other Results/Comments: pending repeat WBC since it was so elevated this morning. consider repeating chest xray or CT instead if not resolving. Assessment/Plan - Problem List (1) Gram positive bacterial infection Impression: ongoing. [place] [address]. He is on Rocephin and Azithromycin. hermilo give Levaquin IV 750mg now and then oral 500mg when sending home (2) COPD (chronic obstructive pulmonary disease) Impression: ongoing. continue with supplemental oxygen and duoneb treatments Q4 hours. need walking oxygen challenge before going home. Patient is receiving steroids but will taper since his blood glucose has been elevated. Qualifiers: COPD type: COPD with acute lower respiratory infection Qualified Code(s): J44.0 - Chronic obstructive pulmonary disease with acute lower respiratory infection (3) Diabetes mellitus Qualifiers: Diabetes mellitus type: type 2 Diabetes mellitus complication status: with neurologic complications Diabetes mellitus complication detail: with unspecified neuropathy Diabetes mellitus terminal worker insulin use: without [facility] use Qualified Code(s): E11.40 - Type 2 diabetes mellitus with diabetic neuropathy, unspecified (4) CAD (coronary artery disease) Impression: stable. continue with blood pressure medication home dosage. continue with monitoring on telemetry as needed Qualifiers: Associated angina: without angina (5) Nicotine dependence in remission Impression: resolved. continue to give smoking cessation education as needed. RT treatment with inhalers as needed. 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
[2017-01-26 10:12] LABS: BASOPHILS # (AUTO) 0.1 10^3/uL (0.0-0.1); BASOPHILS % (AUTO) 0.4 %; HCT - HEMATOCRIT 43.5 % (42.0-52.0); HGB - HEMOGLOBIN 14.3 g/dL (14.0-18.0); LYMPHOCYTES # (AUTO) 1.6 10^3/uL (1.5-3.5); LYMPHOCYTES % (AUTO) 3.9 %; MEAN CORPUSCULAR HEMOGLOBIN 29.4 pg (27.0-31.0); MEAN CORPUSCULAR HGB CONC 32.9 g/dL (32.0-36.0); MEAN CORPUSCULAR VOLUME 89.4 fL (80.0-94.0); MONOCYTES # (AUTO) 0.8 10^3/uL (0.0-1.0); MONOCYTES % (AUTO) 1.9 %; NEUTROPHILS # (AUTO) 37.2 10^3/uL (1.5-6.6); NEUTROPHILS % (AUTO) 93.8 %; RED BLOOD COUNT 4.87 10^6/uL (4.70-6.10); RED CELL DISTRIBUTION WIDTH 13.9 % (12.0-15.0); UNCORRECTED WHITE BLOOD COUNT 39.6 x10^3/uL
[2017-01-26 10:26] LABS: WHITE BLOOD COUNT 39.6 x10^3/uL (4.8-10.8)
[2017-01-26 10:29] LABS: ALBUMIN/GLOBULIN RATIO 0.8 (1.0-2.2); BILIRUBIN,TOTAL 0.7 mg/dL (0.2-1.0); BUN - BLOOD UREA NITROGEN 26 mg/dL (6-20); CALCIUM 8.9 mg/dL (8.5-10.3); CARBON DIOXIDE - CO2 27 mmol/L (21-32); CHLORIDE 96 mmol/L (101-111); CREATININE 1.1 mg/dL (0.6-1.2); GFR - MDRD 67 (>89); GLUCOSE 311 mg/dL (70-100); MAGNESIUM 1.8 mg/dL (1.7-2.8); POTASSIUM 3.7 mmol/L (3.5-5.0); SODIUM 138 mmol/L (135-145); TOTAL PROTEIN 8.2 g/dL (6.7-8.2)
[2017-01-26] MEDS ORDERED: MAGNESIUM SULFATE 2 GRAM 50 ML IV ONE (16:15)
[2017-01-26 16:41] LABS: BASOPHILS # (AUTO) 0.2 10^3/uL (0.0-0.1); BASOPHILS % (AUTO) 0.6 %; HCT - HEMATOCRIT 38.8 % (42.0-52.0); HGB - HEMOGLOBIN 12.8 g/dL (14.0-18.0); LYMPHOCYTES # (AUTO) 0.9 10^3/uL (1.5-3.5); LYMPHOCYTES % (AUTO) 3.4 %; MEAN CORPUSCULAR HEMOGLOBIN 29.3 pg (27.0-31.0); MEAN CORPUSCULAR HGB CONC 32.9 g/dL (32.0-36.0); MEAN CORPUSCULAR VOLUME 89.1 fL (80.0-94.0); MEAN PLATELET VOLUME 8.9 fL (7.4-11.4); MONOCYTES # (AUTO) 0.8 10^3/uL (0.0-1.0); MONOCYTES % (AUTO) 2.9 %; NEUTROPHILS # (AUTO) 25.9 10^3/uL (1.5-6.6); NEUTROPHILS % (AUTO) 93.1 %; RED BLOOD COUNT 4.36 10^6/uL (4.70-6.10); RED CELL DISTRIBUTION WIDTH 13.6 % (12.0-15.0); UNCORRECTED WHITE BLOOD COUNT 27.8 x10^3/uL; WHITE BLOOD COUNT 27.8 x10^3/uL (4.8-10.8)
[2017-01-26 16:56] LABS: PLATELET ESTIMATE, MANUAL NORMAL (130-450,000) (NORMAL); PLATELET MORPHOLOGY NORMAL APPEARANCE (NORMAL)
--- NOTE | 2017-01-26 18:38 | Discharge Plan ---
Discharge Plan Disposition: Home, Self Care Condition: Good Prescriptions: Albuterol Sulf [Ventolin Hfa Inhaler] 2 puffs INH Q4HR PRN #1 inhaler PRN Reason: Wheezing Benzonatate [Tessalon Perle] 100 mg PO Q8HR #30 capsule Albuterol 2.5 mg INH RTQ4H PRN #10 neb PRN Reason: Wheezing predniSONE [Deltasone] 10 mg PO [id number] #42 tab Levofloxacin [Levaquin] 500 mg PO DAILY 7 Days Tiotropium [place] [Spiriva] 1 cap INH DAILY #30 cap.w.dev Diet: Cardiac Activity Restrictions: Activity as Tolerated Shower Restrictions: No Driving Restrictions: No Weight Bearing: Full Weight Instruction Topics: Interstitial Lung Disease Infec Additional Instructions or Follow Up instructions: please take all medication as prescribed. you need to see your primary care doctor within the next week and go to the ER if you have worsening shortness of breath or fever, chills and chest pain. continue activity as tolerated continue to monitor blood glucose since it will worsen with steroids. taper the steroids as prescribed. dirink plenty of water and avoid sugar products and extra carbohydrates in diet. use inhaler for rescue only if short of breath Follow-Up Care: [facility] [place] Clinic - Diabetes Ed No Smoking: If you smoke, Please STOP! Call for help.
[2017-01-26 18:40] VITALS: BP 165/82
--- NOTE | 2017-01-28 17:51 | DISCHARGE SUMMARY ---
DATE OF ADMISSION: 01/24/2017 DATE OF DISCHARGE: 01/26/2017 DISCHARGING PROVIDER: Wendy Martini APRN. ADMITTING DIAGNOSES: Acute dyspnea with possible community-acquired pneumonia superimposed on chronic obstructive pulmonary disease. DISCHARGE DIAGNOSES: 1. Acute dyspnea with hypoxia with acute respiratory failure secondary to leukocytosis and possible c ommunity-acquired pneumonia with Escherichia coli. 2. Acute on chronic obstructive pulmonary disease with exacerbation. 3. Atherosclerotic heart disease with coronary artery disease. 4. Diabetes mellitus, non-insulin dependent with complications. 5. Mixed hyperlipidemia. 6. Chronic gastroesophageal reflux disease. CONSULTATIONS: Respiratory Therapy. PROCEDURES: 1. CTA chest and thorax, impression shows mild to moderate patchy consolidations in the bases bilater al lower lobe including multiple nodule opacities, possible multifocal pneumonia. No pulmonary emboli . HOSPITAL COURSE AND TREATMENT: The patient is a 66-year-old gentleman who came into the ER with a com plaint of sudden right-sided chest discomfort, shortness of breath. He had a past history of COPD, di abetes, hypertension, GERD. When he came in to the ER, he was found to be hypoxic, dyspneic, and had an elevated white blood cell count and as evidenced on CT scan of bibasilar multifocal pneumonia. The patient has been sick for a couple weeks. Family was at bedside to give additional information. stated that he had caught a virus from her and continued to become sicker with each day. He had had a recent low-grade fever, been having headaches and feeling dizzy for 2 weeks prior to coming to the ER. The patient was then admitted, started on antibiotics for community-acquired pneumonia with Rocep hin and azithromycin. The patient's chest x-ray did show possible basilar pneumonia multifocal in the bases and a CTA was done to rule out possible PE, along with pneumonia. The patient was on metformin , which was stopped since he had a CTA and he was started on sliding scale insulin and Accu-Cheks bef ore meals and at bedtime and started on diabetic diet. For his acid reflux, he was continued on omepr azole 20 mg p.o. daily. Given his cardiac history, he takes Cardizem at home, which was continued. Fo r his hyperlipidemia he continued on Lipitor and lipid panel was requested. For his hypertensive hear t disease and coronary artery disease he continued on aspirin and atenolol home dosage. For COPD cont inued on Advair Diskus and Serevent Diskus with respiratory therapy support and DuoNeb treatments as needed. He also received steroid treatments with taper at discharge. On second day of inpatient treatment his white blood cell count jumped to 39,000. Blood work was repe ated, and it showed decrease down to 27,000 on day of discharge. The patient requested that he be dis charged home since he was concerned about the charges that he was incurring since [facility]. At the time of admission the [facility] had notified the ER provider that there were no beds, subse quently the patient was admitted to [facility]. The patient's was informed that he should be transferred when a bed was available. On the second day of inpatient treatment case management spo ke with the and stated that a bed was available and the patient should be transferred. At this t audrey, the patient requested to be able [facility] if [facility] and requested to be dischar ged home if possible. Since the patient's white blood cell count had decreased and symptomatically he was doing better and walking in the room without desaturation less than 90, it was agreed between [facility] hospitalist and the patient that he can be safely discharged home with strict instructions to foll owup had he continued to run a fever or get short of breath or experience more chest pain. He was dis charged home with [facility] for a 5-day course continue treatment along with a Dosepak of steroids wit h taper. He was counseled on smoking cessation; however, had not smoked in a couple years, but did ag ree to be compliant and continue to not smoke. At time of discharge, the patient's vital signs were a blood pressure of 149/78. Respirations are 16. He was saturating 94% on room air. Heart rate of 85 a nd a temperature of 36.4. The patient verbally understood he was to followup within the first 2 days with his primary care provider at the [facility] for further evaluation. is to take the patient home. He also received counseling on continuing with a diabetic diet. He was put back on metformin on the sec ond day after discharge. His hemoglobin A1c was checked and was slightly elevated and counseling and education given regarding diabetic management and monitoring of blood sugars daily. PHYSICAL EXAMINATION: CONSTITUTIONAL: The patient was alert, in no acute distress. EYES: Pupils are equal, round and react to light and accommodation. Conjunctivae and sclerae was gaudencio cteric, not injected. ENT: Nares are patent, mild nasal discharge. Oropharynx: No masses, exudates or lesions. Mucous membr anes were moist. NECK: NECK: Supple. No thyromegaly. RESPIRATORY: Breath sounds are diminished in the bases, no retractions, nasal flaring, increased work of breathing. CARDIOVASCULAR: S1, S2 noted. No gallops, murmurs or rubs. Normal PMI. No JVD. GASTROINTESTINAL: Abdomen was obese, nontender. Bowel sounds present. No guarding or rebound. SKIN: SKIN: Warm, dry, intact. Normal turgor. No evidence of rash, lesions, or cellulitis. NEUROLOGIC: The patient was alert, GCS 15. Cranial nerves 2 through 7 grossly intact. Sensory was int act. MUSCULOSKELETAL: The patient has full range of motion with upper and lower extremities. Pulses 2+ preethi aterally. HEMATOLOGIC: No active bleeding. The patient was hemodynamically stable. LYMPHATICS: No cervical, axillary, supraclavicular lymphadenopathy was noted. PSYCHIATRIC: Behavior was anxious, but appropriate, no suicidal ideation and pleasant mood. Instructions for discharge: 1. Activity: The patient was to resume activities of daily living as tolerated. He was instructed to continue to follow a diabetic diet and to get plenty of rest and drink water and avoid sodas and olivarez it caffeine. 2. FOLLOWUP: The patient verbally understood he is to followup with primary care provider within 1-2 days of discharge. He understands he is to return to the ER if he had any worsening shortness of william th or chest pain. is to take the patient home. The patient was given a prescription for Levaquin 500 mg p.o. tablets for course of 5 days. The patient verbally understood he is to take all medicati on prescribed as given. He was also to return to his home medications as prescribed and followup with PCP for any changes. 3. CODE STATUS: THE PATIENT WAS TO REMAIN A FULL CODE STATUS. 4. Time spent on education and discharge planning and assessment was 50 minutes. JOB #: [id number] EXT JOB #:[id number]
== END 2017-01-26 18:59 | disposition home or self-care (01) | DRG 189 ==
LOC: EDUNIT# → ED 20:10 → MS 22:17 → ED 22:57 → MS 01-25 00:02
PROVIDERS: ADMIT Internal Medicine; ATTEND Nurse Practitioner
DX: J18.9 Pneumonia, unspecified organism (principal); R09.02 Hypoxemia; J44.9 Chronic obstructive pulmonary disease, unspecified; J96.01 Acute respiratory failure with hypoxia; E11.9 Type 2 diabetes mellitus without complications; J15.5 Pneumonia due to Escherichia coli; J44.0 Chronic obstructive pulmonary disease with (acute) lower respiratory infection; J44.1 Chronic obstructive pulmonary disease with (acute) exacerbation; E11.40 Type 2 diabetes mellitus with diabetic neuropathy, unspecified; I11.9 Hypertensive heart disease without heart failure; I25.10 Atherosclerotic heart disease of native coronary artery without angina pectoris; E78.5 Hyperlipidemia, unspecified; K21.9 Gastro-esophageal reflux disease without esophagitis; Z79.84 Long term (current) use of oral hypoglycemic drugs; Z79.51 Long term (current) use of inhaled steroids; Z79.82 Long term (current) use of aspirin; Z79.899 Other long term (current) drug therapy; Z87.891 Personal history of nicotine dependence; I25.2 Old myocardial infarction; Z95.1 Presence of aortocoronary bypass graft; Z95.828 Presence of other vascular implants and grafts
CPT/HCPCS: 36415; 71010; 71275; 80053; 83036; 83605; 83690; 83735; 84484; 85025; 87040; 87070; 87077; 87205; 87275; 87276; 87449; 93005; 93010; 94640; 94761; 96361; 96374; 96375; 99284; 99285

== ENCOUNTER 2019-01-02 17:13 | Emergency (ER) | payer OTHER ==
--- NOTE | 2019-01-02 17:28 | ED Physician Documentation ---
PD HPI URI - Stated complaint Stated Complaint: BAD COUGH - Chief complaint Chief Complaint: Resp - History obtained from History obtained from: Patient - History of Present Illness Timing - onset: How many days ago (4-5) Timing duration: Days (4-5) Timing details: Gradual onset, Still present Associated symptoms: Fever, Productive cough (greenish now, was clear initially), Dyspnea. No: Sore throat, NVD Contributing factors: COPD / asthma Recently seen: Not recently seen Review of Systems Constitutional: reports: Fever Nose: reports: Congestion. 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 Cardiovascular: CABG, Cardiac catheterization, Fempop bypass HEENT: Cataracts, Tonsil/Adenoidectomy, Other - Present Medications Home Medications: Ambulatory Orders Medication Instructions Recorded Confirmed Aspirin [Valorie Chewable Aspirin] 81 mg PO DAILY 01/08/16 01/02/19 metFORMIN [Glucophage] 1,000 mg PO BIDWM 01/08/16 01/02/19 Fluticasone/Salmeterol [Advair 1 puffs INH BID 01/25/17 01/02/19 500-50 Diskus] Glipizide 5 mg PO BIDAC 01/25/17 01/02/19 Multivitamin [Theragran] 1 tab PO DAILY 01/25/17 01/02/19 diltiaZEM CD [Cardizem Cd] 180 mg PO DAILY 01/25/17 01/02/19 Albuterol 2.5 mg INH RTQ4H PRN #10 neb 01/26/17 01/02/19 Albuterol Sulf [Ventolin Hfa 2 puffs INH Q4HR PRN #1 inhaler 01/26/17 01/02/19 Inhaler] Atenolol [Tenormin] 25 mg PO DAILY tablet 01/26/17 01/02/19 Atorvastatin [Lipitor] 40 mg PO QPM tablet 01/26/17 01/02/19 Gabapentin [Neurontin] 300 mg PO TID capsule 01/26/17 01/02/19 Nortriptyline [Pamelor] 50 mg PO QPM capsule 01/26/17 01/02/19 Tiotropium Oakley [Spiriva] 1 cap INH DAILY #30 cap.w.dev 01/26/17 01/02/19 Benzonatate [Tessalon Perle] 100 - 200 mg PO TID PRN #30 capsule 01/02/19 Dexamethasone [Decadron] 4 mg PO DAILY #5 tablet 01/02/19 Doxycycline Hyclate 100 mg PO BID #20 capsule 01/02/19 Ipratropium [Atrovent] 0.5 mg INH RTQ6H #30 neb 01/02/19 guaiFENesin/CODEINE [Robitussin AC] 10 ml PO Q6H PRN #240 ml 01/02/19 - Allergies Allergies/Adverse Reactions: Allergies Allergy/AdvReac Type Severity Reaction Status Date / Time lisinopril AdvReac Mild COUGH Verified 01/02/19 17:19 - Social History Does the pt smoke?: No Smoking Status: Former smoker Does the pt drink ETOH?: No Does the pt have substance abuse?: No - Immunizations Immunizations are current?: Yes PD ED PE NORMAL - Vitals Vital signs reviewed: Yes - General General: Alert and oriented X 3, No acute distress, Well developed/nourished - HEENT HEENT: Ears normal, Pharynx benign - Neck Neck: Supple, no meningeal sign, No adenopathy - Cardiac Cardiac: RRR, No murmur - Respiratory Respiratory: No: Clear bilaterally (some wheezing diffusely. No coarse sounds. ) - Abdomen Abdomen: Soft, Non tender - Derm Derm: Normal color, Warm and dry - Extremities Extremities: Normal ROM s pain, No edema, No calf tenderness / cord - Neuro Neuro: Alert and oriented X 3, No motor deficit, Normal speech Results - Vitals Vitals: Vital Signs - 24 hr 01/02/19 01/02/19 01/02/19 17:17 17:44 18:10 Temperature 37.2 C Heart Rate 109 H 108 H 108 H Respiratory 22 24 16 Rate Blood Pressure 214/97 H 195/101 H O2 Saturation 91 L 93 01/02/19 18:24 Temperature 36.8 C Heart Rate 111 H Respiratory 20 Rate Blood Pressure 188/104 H O2 Saturation Oxygen O2 Source Room air - Rads (name of study) chest xray Radiology: Prelim report reviewed, EMP read contemporaneously PD MEDICAL DECISION MAKING - ED course Complexity details: reviewed results, considered differential, d/w patient Departure - Departure Disposition: Home, Self Care Clinical Impression: Acute exacerbation of COPD with asthma Acute bronchitis Qualifiers: Bronchitis organism: unspecified organism Qualified Code(s): J20.9 - Acute bronchitis, unspecified Condition: Stable Record reviewed to determine appropriate education?: Yes Instructions: ED Upper Resp Infec Abx Tx Prescriptions: Benzonatate [Tessalon Perle] 100 - 200 mg PO TID PRN #30 capsule PRN Reason: Cough Dexamethasone [Decadron] 4 mg PO DAILY #5 tablet Doxycycline Hyclate 100 mg PO BID #20 capsule guaiFENesin/CODEINE [Robitussin AC] 10 ml PO Q6H PRN #240 ml PRN Reason: Cough Ipratropium [Atrovent] 0.5 mg INH RTQ6H #30 neb Comments: Continue usual medications. Use your albuterol nebulizer 4 times a day and extra times as needed. You could add to that ipratropium 3 or 4 times a day for the next several days to week see if it works better in combination. Doxycycline antibiotic twice daily for a week for infection. Decadron steroid daily for 5 more days for inflammation of the airways. Use Tessalon if needed for cough and add codeine cough medicine if needed. Recheck if not improving over the next few days and return sooner if worsening. Discharge Date/Time: 01/02/19 18:39
[2019-01-02] MEDS ORDERED: IPRATROPIUM/ALBUTEROL 3 ML NEB INH STA (17:49)
[2019-01-02] MEDS ORDERED: DOXYCYCLINE 100 MG TABLET PO STA (17:50)
[2019-01-02] MEDS ORDERED: BENZONATATE 100 MG CAPSULE PO STA (17:50)
[2019-01-02] MEDS ORDERED: DEXAMETHASONE 10 MG/ML VIAL PO STA (17:50)
[2019-01-02] MEDS ORDERED: CHERRY SYRUP 10 ML UDC PO ONE (17:50)
[2019-01-02] MEDS ORDERED: HYDROcod/ACETAM 5/325 MG TABLET PO STA (17:50)
[2019-01-02 18:25] VITALS: BP 188/104
--- NOTE | 2019-01-02 18:25 | XRAY Report ---
Reason: cough Procedure Date: 01/02/2019 Accession Number: [id number] / [id number] Procedure: XR - Chest 2 View X-Ray CPT Code: 18065 FULL RESULT: EXAM: CHEST RADIOGRAPHY EXAM DATE: 01/02/2019 05:42 PM. CLINICAL HISTORY: Harsh cough for 4 weeks. COMPARISON: CHEST 1 VIEW 01/24/2017 8:50 PM. TECHNIQUE: 2 views. FINDINGS: Lungs/Pleura: No focal opacities evident. No pleural effusion. No pneumothorax. Hyperinflated lungs. Mediastinum: Prior CABG. Heart and mediastinal contours are unremarkable. Other: No compression fractures. IMPRESSION: Hyperinflation, with no acute pulmonary abnormalities. RADIA
== END 2019-01-02 18:39 | disposition home or self-care (01) ==
LOC: ED 17:13
DX: J44.1 Chronic obstructive pulmonary disease with (acute) exacerbation (principal); J20.9 Acute bronchitis, unspecified; J44.0 Chronic obstructive pulmonary disease with (acute) lower respiratory infection; I10 Essential (primary) hypertension; E11.9 Type 2 diabetes mellitus without complications; Z87.01 Personal history of pneumonia (recurrent); Z79.84 Long term (current) use of oral hypoglycemic drugs; Z87.891 Personal history of nicotine dependence
CPT/HCPCS: 71046; 94640; 99283; 99284; A9270

== ENCOUNTER 2019-05-31 15:35 | Outpatient (CLI) | payer OTHER ==
[2019-05-31 16:09] VITALS: BP 145/80
--- NOTE | 2019-05-31 16:09 | SLEEP CARE CONSULTATION ---
Information from patient questionnaire entered by Ana Pickens. I have reviewed and concur with the information entered by Ana Pickens. This document represents the service I personally performed and the decisions made by me, Annie Valdivia MD, [facility]. History of Present Illness Reason for Visit: New patient Chief Complaint: reports: Unrefreshed sleep, Snoring, Excessive daytime sleepiness, Observed pauses in breathing, Fatigue, Frequent awakenings at night Duration of Symptoms: 2 YEARS Usual bedtime: 2330 Time it takes to fall asleep: 10-15 MINUTES Snores at night: Yes Observed to quit breathing while asleep: Yes Sleeps alone due to snoring: No Number of times waking at night: 4-5 Reasons for waking at night: reports: Bathroom Toss, Turn, or Twitch while sleeping: Yes Recalls having dreams: Yes Usually gets out of bed at: 2524-7821 Feels refreshed in the morning: No Morning headache: Yes Sleepy or fatigued during the day: Yes Ever fallen asleep while driving: No Takes day naps: Yes Dreams during day naps: No Prior sleep studies: No Subjective Initial [place] Sleepiness Scale score: 18 Past Medical History Past Medical History: reports: Claustrophobia, Arthritis, Coronary Heart Disease, Asthma, Other (COPD) Social History The patient's occupation is RETIRED. Patient is and lives in [place]. Have you smoked in the past 12 months: Yes Cigarettes per day (20/pack): 40 Years of smokin Quit date: 2009 Smoking Pack Years: 100.0 Alcohol use: Yes Alcohol amount and frequency: 1 DRINK/MONTH Caffeine use: Yes Caffeine amount and frequency: 1 CUP Family History Family history of sleep disordered breathing: Yes Family Hx Sleep Apnea: Sibling: Snoring Allergies and Home Medications Known drug allergies: Yes (lisinopril) Drug allergies reviewed: Yes Home medication list reviewed: Yes Allergy and home medication list: MEDs: atenolol, omeprazole, aspirin, glipizide, metformin, gabapentin, Advair, nortriptyline, atorvastatin, diltiazem, and Spriva Review of Systems Weight gain over past 5 years: 20 Cardiovascular: reports: chest pain Respiratory: reports: shortness of breath, wheeze, sputum production Gastrointestinal: reports: heartburn Urinary: reports: frequency Neurological: reports: gait or balance problems Psychiatric: reports: depression, claustrophobia Ear/Nose/Throat: reports: dry mouth/throat, tonsillectomy, wisdom teeth removed Endocrine: reports: sluggishness, too hot or cold, excessive thirst, increased urination Musculoskeletal: reports: joint pain, neck pain, back pain, joint swelling, muscle pain or cramping, mobility problems Immunologic: reports: itching Physical Exam Vital signs obtained and entered by: Dr. Valdivia Blood Pressure: 145/80 Heart Rate: 62 O2 Saturation: 96 Height: 6 ft 3 in Weight (kg): 240 lb Body Mass Index: 29.9 BMI Classification: Overweight Neck circumference: 16.25 Mood/affect: normal HEENT: No craniofacial malformation Nostrils: patent to airflow Turbinates: normal Septum: midline Mouth and throat: narrow oropharynx Soft palate: long Hard palate: normal (He wears full upper and lower dentures) Uvula: normal Uvula visualization: 50% Mallampati Class II Tongue: normal in size Tonsils: small Chin and jaw: normal size and position Neck: normal w/o lymphadenopathy or thyromegaly Heart: regular rate and rhythm Lungs: clear bilaterally (diminished breath sounds throughout) Abdomen: soft Extremities: no edema or clubbing Neurologic: intact Impression and Plan I spent 100% of this [15][30] minute visit face to face with the patient with greater than 50% of this was spent time counseling the patient and coordination of care.
== END 2019-05-31 15:36 | disposition home or self-care (01) ==
LOC: SC 15:35
PROVIDERS: ATTEND Internal Medicine Pulmonary Disease
DX: G47.10 Hypersomnia, unspecified (principal); R06.81 Apnea, not elsewhere classified; G47.8 Other sleep disorders; R06.83 Snoring; R51 Headache; R41.89 Other symptoms and signs involving cognitive functions and awareness
CPT/HCPCS: 99203; 99212

== ENCOUNTER 2019-06-29 19:31 | Outpatient (CLI) | payer OTHER | END 2019-06-29 19:32 | disposition home or self-care (01) | LOC: SC 19:31 | PROVIDERS: ATTEND Internal Medicine Pulmonary Disease | DX: G47.33 Obstructive sleep apnea (adult) (pediatric) (principal); G47.61 Periodic limb movement disorder | CPT/HCPCS: 95810 ==

== ENCOUNTER 2019-07-26 12:50 | Outpatient (CLI) | payer OTHER ==
--- NOTE | 2019-07-26 13:13 | SLEEP CARE CONSULTATION ---
Information from patient questionnaire entered by Ana Pickens. I have reviewed and concur with the information entered by Ana Pickens. This document represents the service I personally performed and the decisions made by me, Annie Valdivia MD, [facility]. History of Present Illness Initial [place] Sleepiness Scale score: 18 Current [place] Sleepiness Scale score: 14 Additional HPI information: HPI: Mr. Younger returned for follow up of the sleep study he had on 06-29-19. The polysomnography showed that the patient had slightly reduced sleep efficiency due to a few awakenings after the sleep onset. The sleep architecture was abnormal for sleep fragmentation and reduced amount of time spent in slow wave sleep (N3). Respiratory monitoring showed mild obstructive sleep apnea- hypopnea (AHI = 9.4) associated with frequent arousals, oxyhemoglobin desaturation and moderate hypoxia (ruth oxygen saturation of 77%). Baseline oxygen saturation was low-normal. The respiratory events occurred almost exclusively during supine sleep (supine AHI = 76.2; non-supine = 4.24). Snore was moderate to loud in intensity. There was severe periodic leg movement of sleep contributing to the sleep fragmentation. Cardiac rhythm was normal sinus rhythm without significant arrhythmia. No abnormal behavior (parasomnia) observed during the night. The patient was informed of these findings. I explained to him the pathop hysiology behind obstructive sleep apnea. We then spent quite a bit of time discussing different treatment options. For mild obstructive sleep apnea, surgery and oral appliance are alternatives to nasal CPAP therapy but in moderate or severe cases, nasal CPAP is the most effective and reliable treatment. Weight loss in an obese individual is strongly recommended. After some discussion, he opted to not sleep on his back. He says that 99% of the time he sleeps on his sides at home. Allergies and Home Medications Drug allergies reviewed: Yes Home medication list reviewed: Yes Review of Systems Review of systems same as previous: Yes Physical Exam Weight: 240 lb Impression and Plan IMPRESSION: 1. Obstructive Sleep Apnea-Hypopnea Syndrome, mild, associated with moderate hypoxemia and sleep fragmentation. The sleep-disordered breathing is positional. Therefore, if he only sleeps on his side at home, he does not require treatment. If later on in his life he has to sleep part of the time on his back, e.g. from pain, he should return to discuss other treatment modalities. PLAN: 1. Avoid sleeping supine 2. Return for follow up on as needed basis. I spent 100% of this 20 minute visit face to face with the patient with greater than 50% of this was spent time counseling the patient and coordination of care.
== END 2019-07-26 12:51 | disposition home or self-care (01) ==
LOC: SC 12:50
PROVIDERS: ATTEND Internal Medicine Pulmonary Disease
DX: G47.33 Obstructive sleep apnea (adult) (pediatric) (principal)
CPT/HCPCS: 99212; 99213

== ENCOUNTER 2019-09-08 13:37 | Emergency (ER) | payer OTHER ==
[2019-09-08] MEDS ORDERED: IPRATROPIUM/ALBUTEROL 3 ML NEB INH STA (13:52)
[2019-09-08] MEDS ORDERED: guaiFENesin/CODEINE 5 ML UDC PO STA (13:52)
--- NOTE | 2019-09-08 13:54 | ED Physician Documentation ---
PD HPI DYSPNEA - Stated complaint Stated Complaint: SOA - Chief complaint Chief Complaint: Resp - History obtained from History obtained from: Patient, Family () - History of Present Illness Timing - onset: Other (69-year-old gentleman with history of COPD, at baseline he is on tiotropium, Advair, rescue albuterol, and recently was on oral steroids which he thought was not helping so he is being tapered off. He got sick about 10 days ago with cough which is productive and shortness of breath. No fevers. He did have leg cramps at the beginning. He was on a Z-Nestor which she finished up 3 days ago, he continues to worsen with shortness of breath and productive cough. There is no chest pain.) Review of Systems Constitutional: denies: Fever, Chills Nose: reports: Rhinorrhea / runny nose. denies: Congestion Throat: denies: Sore throat PD PAST MEDICAL HISTORY - Past Medical History Cardiovascular: Hypertension, High cholesterol, Coronary artery disease, [place] Respiratory: COPD, Emphysema, Pneumonia, Sleep apnea Endocrine/Autoimmune: Type 2 diabetes GI: GERD : None HEENT: None Psych: Claustrophobia Musculoskeletal: None Derm: None - Past Surgical History Past Surgical History: Yes /[employer]: Other Cardiovascular: CABG, Cardiac catheterization, Fempop bypass HEENT: Cataracts, Tonsil/Adenoidectomy, Other - Present Medications Home Medications: Ambulatory Orders Medication Instructions Recorded Confirmed Aspirin [Valorie Chewable Aspirin] 81 mg PO DAILY 01/08/16 01/02/19 metFORMIN [Glucophage] 1,000 mg PO BIDWM 01/08/16 01/02/19 Fluticasone/Salmeterol [Advair 1 puffs INH BID 01/25/17 01/02/19 500-50 Diskus] Glipizide 5 mg PO BIDAC 01/25/17 01/02/19 Multivitamin [Theragran] 1 tab PO DAILY 01/25/17 01/02/19 diltiaZEM CD [Cardizem Cd] 180 mg PO DAILY 01/25/17 01/02/19 Albuterol 2.5 mg INH RTQ4H PRN #10 neb 01/26/17 01/02/19 Albuterol Sulf [Ventolin Hfa 2 puffs INH Q4HR PRN #1 inhaler 01/26/17 01/02/19 Inhaler] Atorvastatin [Lipitor] 40 mg PO QPM tablet 01/26/17 01/02/19 Gabapentin [Neurontin] 300 mg PO TID capsule 01/26/17 01/02/19 Nortriptyline [Pamelor] 50 mg PO QPM capsule 01/26/17 01/02/19 Tiotropium [place] [Spiriva] 1 cap INH DAILY #30 cap.w.dev 01/26/17 01/02/19 atenoloL [Tenormin] 25 mg PO DAILY tablet 01/26/17 01/02/19 Benzonatate [Tessalon [place]] 100 - 200 mg PO TID PRN #30 capsule 01/02/19 Doxycycline Hyclate 100 mg PO BID #20 capsule 01/02/19 Ipratropium [Atrovent] 0.5 mg INH RTQ6H #30 neb 01/02/19 dexAMETHasone [Decadron] 4 mg PO DAILY #5 tablet 01/02/19 guaiFENesin/CODEINE [Robitussin AC] 10 ml PO Q6H PRN #240 ml 01/02/19 Doxycycline Hyclate 100 mg PO BID #20 capsule 09/08/19 guaiFENesin/CODEINE [Robitussin AC] 5 - 10 ml PO Q6H PRN #120 ml 09/08/19 - Allergies Allergies/Adverse Reactions: Allergies Allergy/AdvReac Type Severity Reaction Status Date / Time lisinopril AdvReac Mild COUGH Verified 01/02/19 17:19 - Social History Does the pt smoke?: No Smoking Status: Former smoker Does the pt drink ETOH?: No Does the pt have substance abuse?: No - Immunizations Immunizations are current?: Yes PD ED PE NORMAL - Vitals Vital signs reviewed: Yes - General General: Alert and oriented X 3, Well developed/nourished - HEENT HEENT: PERRL, EOMI - Neck Neck: Supple, no meningeal sign, No bony TTP - Cardiac Cardiac: RRR, No murmur - Respiratory Respiratory: No respiratory distress, Other (Diffusely wheezy and rhonchorous with frequent bronchitic cough) - Abdomen Abdomen: Non tender - Back Back: No CVA TTP, No spinal TTP - Extremities Extremities: No edema, No calf tenderness / cord - Neuro Neuro: Alert and oriented X 3, Normal speech Results - Vitals Vitals: Vital Signs - 24 hr 09/08/19 09/08/19 09/08/19 13:45 14:09 14:40 Temperature 36.8 C Heart Rate 108 H 101 H 94 Respiratory 24 12 18 Rate Blood Pressure 201/111 H 167/150 H O2 Saturation 93 92 Oxygen O2 Source Room air - EKG (time done) 1344 Rate: Rate (enter#) (107) Rhythm: Sinus tachycardia, LAE, NADER [place]: RAD Intervals: Normal CT Ischemia: Non specific changes. No: ST elevation c/w ischemia, ST depression Computer interpretation: Agree with computer - Labs Labs: Laboratory Tests 09/08/19 09/08/19 09/08/19 14:27 14:27 14:27 WBC 10.1 RBC 4.81 Hgb 14.2 Hct 43.6 MCV 90.6 MCH 29.5 MCHC 32.6 RDW 13.1 Plt Count 173 MPV 10.1 Neut # (Auto) 6.7 H Lymph # (Auto) 2.5 Andrew # (Auto) 0.5 Eos # (Auto) 0.3 Baso # (Auto) 0.0 Absolute Nucleated RBC 0.00 Nucleated RBC % 0.0 Sodium 139 Potassium 3.5 Chloride 97 L Carbon Dioxide 30 Anion Gap 12.0 BUN 13 Creatinine 1.0 Estimated GFR (MDRD) 74 L Glucose 147 H Lactic Acid Calcium 9.0 Total Bilirubin 0.8 AST 16 ALT 24 Alkaline Phosphatase 54 Troponin I High Sens 11.1 Total Protein 7.4 Albumin 3.5 Globulin 3.9 Albumin/Globulin Ratio 0.9 L Lipase 21 L 09/08/19 14:27 WBC RBC Hgb Hct MCV MCH MCHC RDW Plt Count MPV Neut # (Auto) Lymph # (Auto) Andrew # (Auto) Eos # (Auto) Baso # (Auto) Absolute Nucleated RBC Nucleated RBC % Sodium Potassium Chloride Carbon Dioxide Anion Gap BUN Creatinine Estimated GFR (MDRD) Glucose Lactic Acid 1.4 Calcium Total Bilirubin AST ALT Alkaline Phosphatase Troponin I High Sens Total Protein Albumin Globulin Albumin/Globulin Ratio Lipase - Rads (name of study) 2v chest Radiology: EMP read contemporaneously (hyperinflation, NAD) PD MEDICAL DECISION MAKING - ED course ED course: 69-year-old gentleman with apparent exacerbation of COPD, already was on Zi thromax and they do not want to do more steroids. He is feeling better after breathing treatment here. Vital signs and labs are relatively unremarkable. Departure - Departure Disposition: 01 Home, Self Care Clinical Impression: COPD (chronic obstructive pulmonary disease) Qualifiers: COPD type: chronic bronchitis Chronic bronchitis type: mucopurulent Qualified Code(s): J41.1 - Mucopurulent chronic bronchitis Condition: Good Record reviewed to determine appropriate education?: Yes Instructions: COPD Dc Prescriptions: Doxycycline Hyclate 100 mg PO BID #20 capsule guaiFENesin/CODEINE [Robitussin AC] 5 - 10 ml PO Q6H PRN #120 ml PRN Reason: Cough Comments: Call your doctor to arrange a follow-up appointment, make the next available appointment. In the interim, return anytime if worse or if new symptoms develop.
--- NOTE | 2019-09-08 14:27 | XRAY Report ---
Reason: cough Procedure Date: 09/08/2019 Accession Number: [id number] / [id number] Procedure: XR - Chest 2 View X-Ray CPT Code: 79450 Final Report FULL RESULT: EXAM: CHEST RADIOGRAPHY EXAM DATE: 09/08/2019 02:10 PM. CLINICAL HISTORY: Cough. History of COPD. Shortness of breath. COMPARISON: CHEST 2 VIEW 01/02/2019 5:35 PM CHEST ANGIO 01/24/2017 9:28 PM CHEST 2 VIEW PA/LAT 01/16/2017 2:14 PM. TECHNIQUE: 2 views. FINDINGS: Lungs/Pleura: Hyperinflation, as before. Biapical scarring. No new focal consolidation. No pleural effusion. No pneumothorax. Mediastinum: Status post median sternotomy. Stable clips project over the mediastinum. Cardiac size is within normal limits. Other: None. IMPRESSION: 1. Hyperinflation, as before. 2. No acute cardiopulmonary process. RADIA
[2019-09-08 14:34] LABS: BASOPHILS % (AUTO) 0.4 %; EOSINOPHILS # (AUTO) 0.3 10^3/uL (0.0-0.7); EOSINOPHILS % (AUTO) 3.1 %; HGB - HEMOGLOBIN 14.2 g/dL (14.0-18.0); LYMPHOCYTES # (AUTO) 2.5 10^3/uL (1.5-3.5); LYMPHOCYTES % (AUTO) 24.3 %; MEAN CORPUSCULAR HEMOGLOBIN 29.5 pg (27.0-31.0); MEAN CORPUSCULAR HGB CONC 32.6 g/dL (32.0-36.0); MEAN CORPUSCULAR VOLUME 90.6 fL (80.0-94.0); MEAN PLATELET VOLUME 10.1 fL (7.4-11.4); MONOCYTES # (AUTO) 0.5 10^3/uL (0.0-1.0); MONOCYTES % (AUTO) 4.8 %; NEUTROPHILS # (AUTO) 6.7 10^3/uL (1.5-6.6); NEUTROPHILS % (AUTO) 66.3 %; PLT - PLATELET COUNT 173 10^3/uL (130-450); RED BLOOD COUNT 4.81 10^6/uL (4.70-6.10); RED CELL DISTRIBUTION WIDTH 13.1 % (12.0-15.0); WHITE BLOOD COUNT 10.1 x10^3/uL (4.8-10.8)
[2019-09-08 14:42] VITALS: BP 167/150
[2019-09-08 14:50] LABS: ALBUMIN 3.5 g/dL (3.2-5.5); ALBUMIN/GLOBULIN RATIO 0.9 (1.0-2.2); BILIRUBIN,TOTAL 0.8 mg/dL (0.2-1.0); TOTAL PROTEIN 7.4 g/dL (6.7-8.2)
== END 2019-09-08 15:58 | disposition home or self-care (01) ==
LOC: ED 13:37
DX: J44.1 Chronic obstructive pulmonary disease with (acute) exacerbation (principal); Z87.891 Personal history of nicotine dependence; R00.0 Tachycardia, unspecified; I10 Essential (primary) hypertension; E11.9 Type 2 diabetes mellitus without complications; Z79.84 Long term (current) use of oral hypoglycemic drugs; Z79.82 Long term (current) use of aspirin
CPT/HCPCS: 36415; 71046; 80053; 83605; 83690; 84484; 85025; 93005; 94640; 99284; A9270

== ENCOUNTER 2020-02-17 09:03 | Outpatient (CLI) | payer OTHER ==
--- NOTE | 2020-02-17 09:42 | XRAY Report ---
Reason: SHOULDER JOINT PAIN, LEFT Procedure Date: 02/17/2020 Accession Number: [id number] / [id number] Procedure: XR - Shoulder 3 View LT CPT Code: Final Report FULL RESULT: PROCEDURE: Shoulder 3 View LT INDICATIONS: SHOULDER JOINT PAIN, LEFT TECHNIQUE: 3 views of the shoulder were acquired. COMPARISON: None. FINDINGS: Bones: No fractures or dislocations. Moderate left acromioclavicular joint osteoarthritic degenerative changes including marginal osteophytosis and subchondral sclerosis.. No suspicious bony lesions. Visualized ribs appear intact. Soft tissues: No suspicious soft tissue calcifications. Postsurgical changes compatible prior CABG procedure noted. IMPRESSION: 1. Moderate left acromioclavicular joint osteoarthritis. 2. No fracture. No acute osseous lesion. If there is continued clinical concern for pathology, then advanced imaging (CT, MR, bone scan) should be considered for further evaluation. Reviewed by: Shaina Avina MD, PhD on 02/17/2020 9:41 AM PDT Approved by: Shaina Avina MD, PhD on 02/17/2020 9:41 AM PDT Station ID: [id number]
== END 2020-02-17 09:04 | disposition home or self-care (01) ==
LOC: DI 09:03
PROVIDERS: ATTEND Family Medicine
DX: M19.012 Primary osteoarthritis, left shoulder (principal)
CPT/HCPCS: 36415; 80053; 80061; 83036; 83721; 84443; 85025; 86769

== ENCOUNTER 2020-02-17 09:21 | Outpatient (CLI) | payer OTHER ==
[2020-02-17 09:37] LABS: BASOPHILS # (AUTO) 0.1 10^3/uL (0.0-0.1); BASOPHILS % (AUTO) 1.1 %; EOSINOPHILS # (AUTO) 0.5 10^3/uL (0.0-0.7); EOSINOPHILS % (AUTO) 4.1 %; HGB - HEMOGLOBIN 14.9 g/dL (14.0-18.0); LYMPHOCYTES # (AUTO) 2.2 10^3/uL (1.5-3.5); LYMPHOCYTES % (AUTO) 19.3 %; MEAN CORPUSCULAR HEMOGLOBIN 30.2 pg (27.0-31.0); MEAN CORPUSCULAR VOLUME 91.5 fL (80.0-94.0); MONOCYTES # (AUTO) 0.8 10^3/uL (0.0-1.0); MONOCYTES % (AUTO) 7.1 %; NEUTROPHILS # (AUTO) 7.7 10^3/uL (1.5-6.6); NEUTROPHILS % (AUTO) 67.5 %; PLT - PLATELET COUNT 229 10^3/uL (130-450); RED BLOOD COUNT 4.93 10^6/uL (4.70-6.10); RED CELL DISTRIBUTION WIDTH 12.4 % (12.0-15.0); WHITE BLOOD COUNT 11.4 x10^3/uL (4.8-10.8)
[2020-02-17 09:56] LABS: ALKALINE PHOSPHATASE 75 IU/L (42-121); ALT ALANINE AMINOTRANSFERASE 25 IU/L (10-60); AST ASPARTATE AMINOTRANSFERASE 21 IU/L (10-42); BILIRUBIN,TOTAL 1.2 mg/dL (0.2-1.0); BUN - BLOOD UREA NITROGEN 20 mg/dL (6-20); CALCIUM 9.4 mg/dL (8.5-10.3); CARBON DIOXIDE - CO2 26 mmol/L (21-32); CHLORIDE 102 mmol/L (101-111); CHOL/HDL RATIO 2.3 (<5.0); CHOLESTEROL 122 mg/dL; CREATININE 1.3 mg/dL (0.6-1.2); GLUCOSE 169 mg/dL (70-100); HDL CHOLESTEROL 54 mg/dL; LDL CHOLESTEROL,CALCULATED 45 mg/dL; LDL/HDL RATIO 0.8 (<3.6); SODIUM 140 mmol/L (135-145); VLDL CHOLESTEROL 23 mg/dL
[2020-02-17 10:04] LABS: HB2 TOTAL 15.9 g/dL; HEMOGLOBIN A1C 0.96 g/dL; HEMOGLOBIN A1C % 7.7 % (4.6-6.2)
== END 2020-02-17 09:22 | disposition home or self-care (01) ==
LOC: LAB 09:21
PROVIDERS: ATTEND Family Medicine
DX: E78.5 Hyperlipidemia, unspecified (principal); I10 Essential (primary) hypertension; E11.9 Type 2 diabetes mellitus without complications; J43.9 Emphysema, unspecified
CPT/HCPCS: 36415; 80053; 80061; 83036; 83721; 84443; 85025; 86769

== ENCOUNTER 2020-06-05 15:19 | Outpatient (CLI) | payer OTHER | END 2020-06-05 15:20 | disposition home or self-care (01) | LOC: LAB 15:19 | PROVIDERS: ATTEND Internal Medicine | DX: Z01.812 Encounter for preprocedural laboratory examination (principal); Z20.828 Contact with and (suspected) exposure to other viral communicable diseases ==

== ENCOUNTER 2020-06-07 08:00 | Outpatient (CLI) | payer OTHER ==
[2020-06-07 18:31] LABS: ALBUMIN 4.2 g/dL (3.2-5.5); ALBUMIN/GLOBULIN RATIO 1.1 (1.0-2.2); BILIRUBIN,TOTAL 1.1 mg/dL (0.2-1.0); CALCIUM 9.8 mg/dL (8.5-10.3); CREATININE 1.3 mg/dL (0.6-1.2); TOTAL PROTEIN 8.1 g/dL (6.7-8.2)
[2020-06-07 18:36] LABS: BASOPHILS # (AUTO) 0.1 10^3/uL (0.0-0.1); BASOPHILS % (AUTO) 1.2 %; EOSINOPHILS # (AUTO) 0.6 10^3/uL (0.0-0.7); EOSINOPHILS % (AUTO) 5.4 %; HGB - HEMOGLOBIN 14.4 g/dL (14.0-18.0); LYMPHOCYTES # (AUTO) 2.4 10^3/uL (1.5-3.5); LYMPHOCYTES % (AUTO) 24.1 %; MEAN CORPUSCULAR HEMOGLOBIN 29.9 pg (27.0-31.0); MEAN CORPUSCULAR HGB CONC 32.7 g/dL (32.0-36.0); MEAN CORPUSCULAR VOLUME 91.5 fL (80.0-94.0); MEAN PLATELET VOLUME 11.7 fL (7.4-11.4); MONOCYTES # (AUTO) 0.8 10^3/uL (0.0-1.0); MONOCYTES % (AUTO) 7.7 %; NEUTROPHILS % (AUTO) 59.8 %; PLT - PLATELET COUNT 244 10^3/uL (130-450); RED BLOOD COUNT 4.82 10^6/uL (4.70-6.10); RED CELL DISTRIBUTION WIDTH 14.2 % (12.0-15.0); WHITE BLOOD COUNT 10.1 x10^3/uL (4.8-10.8)
[2020-06-07 19:03] LABS: HEMOGLOBIN A1c% 7.1 % (4.27-6.07)
== END 2020-06-07 23:59 | disposition home or self-care (01) ==
LOC: LAB.WCP 08:00
PROVIDERS: ATTEND Family Medicine
DX: E11.9 Type 2 diabetes mellitus without complications (principal); N28.9 Disorder of kidney and ureter, unspecified; R25.1 Tremor, unspecified
CPT/HCPCS: 36415; 80053; 83036; 85025

== ENCOUNTER 2020-06-27 14:22 | Outpatient (CLI) | payer OTHER ==
[2020-06-27 15:33] LABS: BASOPHILS # (AUTO) 0.1 10^3/uL (0.0-0.1); BASOPHILS % (AUTO) 0.9 %; EOSINOPHILS # (AUTO) 0.5 10^3/uL (0.0-0.7); EOSINOPHILS % (AUTO) 5.2 %; HGB - HEMOGLOBIN 14.7 g/dL (14.0-18.0); LYMPHOCYTES # (AUTO) 2.2 10^3/uL (1.5-3.5); LYMPHOCYTES % (AUTO) 24.3 %; MEAN CORPUSCULAR HEMOGLOBIN 29.8 pg (27.0-31.0); MEAN CORPUSCULAR HGB CONC 33.5 g/dL (32.0-36.0); MEAN CORPUSCULAR VOLUME 88.9 fL (80.0-94.0); MEAN PLATELET VOLUME 11.6 fL (7.4-11.4); MONOCYTES # (AUTO) 0.7 10^3/uL (0.0-1.0); NEUTROPHILS # (AUTO) 5.6 10^3/uL (1.5-6.6); NEUTROPHILS % (AUTO) 60.5 %; PLT - PLATELET COUNT 215 10^3/uL (130-450); RED BLOOD COUNT 4.94 10^6/uL (4.70-6.10); RED CELL DISTRIBUTION WIDTH 13.5 % (12.0-15.0); WHITE BLOOD COUNT 9.2 x10^3/uL (4.8-10.8)
[2020-06-27 15:50] LABS: CALCIUM 9.5 mg/dL (8.5-10.3); CREATININE 1.4 mg/dL (0.6-1.2)
[2020-06-28 10:33] LABS: HOMOCYSTEINE 17.9 umol/L (<11.4)
== END 2020-06-27 14:23 | disposition home or self-care (01) ==
LOC: LAB 14:22
PROVIDERS: ATTEND Internal Medicine
DX: E53.8 Deficiency of other specified B group vitamins (principal); R91.1 Solitary pulmonary nodule
CPT/HCPCS: 36415; 80048; 82607; 83090; 83921; 85025

== ENCOUNTER 2020-06-28 12:05 | Outpatient (CLI) | payer OTHER ==
[2020-06-28 12:24] LABS: INR 1.1 (0.8-1.2); PT - PROTHROMBIN TIME 12.7 secs (9.9-12.6)
== END 2020-06-28 12:06 | disposition home or self-care (01) ==
LOC: LAB 12:05
PROVIDERS: ATTEND Internal Medicine
DX: R91.1 Solitary pulmonary nodule (principal)
CPT/HCPCS: 36415; 85610